=== PATIENT | female | born 1965 | race Caucasian/White ===

== ENCOUNTER → 2017-09-10 08:38 | Outpatient (CLI) | payer OTHER, SELFPAY ==
--- NOTE | 2017-09-10 | CT_ITS ---
CT head/brain wo con Ordering Physician: Jake Degroot MD Patient Age: 52 years: Female HISTORY: ITS.REASON: HEAD INJURY --TRAUMA WITH GAN Head injury 4 days ago with headache pain across top of TECHNIQUE: Routine axial CT of head with bone and brain windows performed. Note reduction techniques including CT software exposure control elevation COMPARISON :Previous MRI of brain from January 2017 FINDINGS 9 No acute intracranial findings. No hemorrhage. No mass no subdural collection no territorial infarct. The ventricles appear normal in size and appearance. Suprasellar cistern and ambient cistern clear unremarkable. Slight Generous superior cerebellar cistern noted beneath the the tentorium 2016 MRI. Merely reflects anatomical variation to although this could be very subtle atrophy at the superior cerebellum. Reviewing today's study along with previous MR brain here there is no compression upon the superior cerebellum thus thus does not appear to be underlying arachnoid nearly prominent cerebellar cyst cisterna Posterior fossa is unremarkable Minor diffuse cerebral atrophy. Skull intact. Visualized paranasal sinuses clear. Mastoid air cells, middle air and IACs unremarkable IMPRESSION: ======= No acute intracranial findings .. Early mild cerebral atrophy Slightly generous superior cerebellar cistern again noted Anatomic variation and unchanged vs MRI of January 2017
== END ==
PROVIDERS: PCP Internal Medicine Adolescent Medicine; Visit Provider Emergency Medicine
DX: S09.90XA Unspecified injury of head, initial encounter (principal); R51 Headache
CPT/HCPCS: 70450

== ENCOUNTER → 2017-09-21 08:36 | Outpatient (CLI) | payer OTHER, SELFPAY ==
[2017-09-21 12:10] LABS: Free T4 (Free Thyroxine) 1.01 ng/dl (0.76-1.46); T4 (Thyroxine) 8.6 ug/dl (4.7-13.3)
[2017-09-21 14:27] LABS: Free Thyroxine Index 2.8 ug/dL (5.93-13.13); Triiodothryronine (T3) Uptake 33 % (31-39)
[2017-09-23 06:28] LABS: Triiodothyronine (T3) Free 3.2 pg/mL (2.0-4.4)
== END ==
PROVIDERS: Visit Provider Internal Medicine Adolescent Medicine
DX: R94.6 Abnormal results of thyroid function studies (principal)
CPT/HCPCS: 36415; 84436; 84439; 84479; 84481

== ENCOUNTER → 2018-03-22 09:46 | Outpatient (CLI) | payer OTHER, SELFPAY ==
[2018-03-22 12:52] LABS: Blood Urea Nitrogen 11 mg/dL (7-18); Carbon Dioxide 28 mmol/L (21.0-32.0); Chloride 104 mmol/L (98-107); Creatinine,Serum 0.55 mg/dL (0.55-1.02); Estimated Glomerular Filt Rate 115 ml/min (>60); Free T4 (Free Thyroxine) 1.09 ng/dl (0.76-1.46); GFR (African American) 139 ML/MIN (>60); Glucose 104 mg/dL (74-106); Sodium 141 mmol/L (136-145); Thyroid Stimulating Hormone 1.22 uIU/ml (0.358-3.740)
== END ==
PROVIDERS: Physician Assistant; PCP Internal Medicine Adolescent Medicine; Visit Provider Internal Medicine
DX: I48.0 Paroxysmal atrial fibrillation (principal); E03.9 Hypothyroidism, unspecified; E78.5 Hyperlipidemia, unspecified; I10 Essential (primary) hypertension; I11.9 Hypertensive heart disease without heart failure; I51.9 Heart disease, unspecified; I89.0 Lymphedema, not elsewhere classified
CPT/HCPCS: 36415; 80048; 84439; 84443

== ENCOUNTER → 2018-08-20 08:37 | Outpatient (CLI) | payer OTHER, SELFPAY | PROVIDERS: PCP Internal Medicine Adolescent Medicine; Visit Provider Internal Medicine Adolescent Medicine | DX: R25.1 Tremor, unspecified (principal) | CPT/HCPCS: 93005; 95816 ==

== ENCOUNTER → 2018-08-31 00:27 | Outpatient (CLI) | payer OTHER, SELFPAY | PROVIDERS: PCP Internal Medicine Adolescent Medicine; Visit Provider Internal Medicine Cardiovascular Disease | DX: I48.91 Unspecified atrial fibrillation (principal) | CPT/HCPCS: 93005 ==

== ENCOUNTER → 2018-09-12 09:26 | Outpatient (CLI) | payer OTHER, SELFPAY ==
--- NOTE | 2018-09-12 09:29 | MR_ITS ---
MR head/brain wo con HISTORY: Seizures, tremors ITS.REASON: TREMORS OF NERVOUS SYSTEM, PAROXYSMAL ATRIAL FIBRILLATION ORDERING PHYSICIAN: Jorge Solorzano MD PATIENT AGE: 53 years Comparison: 01/12/2017 TECHNIQUE: Standard multiplanar multiecho sequences are performed without contrast. FINDINGS: No midline shift, mass effect, intracranial hemorrhage, or hydrocephalus. No evidence of acute infarction. The cerebellopontine angles, cerebellum, and brainstem are unremarkable. There are few scattered periventricular and subcortical T2 white matter hyperintensities nonspecific. There is a small area of increased subcortical FLAIR signal in the right parietal area on image #19 not duplicated on the coronal images and may be due to partial volume averaging artifact in the cortical medullary junction. Consider follow-up exam with contrast to exclude a small subcortical lesion. This measures approximately 4 mm. The pituitary and craniocervical junction have an unremarkable appearance. No mastoid effusion or sinus air-fluid level. There is prominence of the superior cerebellar cistern once again noted unchanged consistent with a normal variant. IMPRESSION: 1. No definite acute intracranial findings. There are few scattered periventricular and subcortical T2 white matter hyperintensities which are mostly unchanged. 2. There is a 4 mm subcortical area of increased FLAIR signal in the right parietal lobe possibly due to artifact from the cortical medullary junction. This however was not readily apparent on the previous exam. This could also be due to small gliotic focus. Consider follow-up exam with contrast to exclude the possibility of a small subcortical lesion
== END ==
PROVIDERS: PCP Internal Medicine Adolescent Medicine; Referring Provider Internal Medicine Adolescent Medicine; Visit Provider Internal Medicine Adolescent Medicine
DX: R25.1 Tremor, unspecified (principal); I48.0 Paroxysmal atrial fibrillation
CPT/HCPCS: 70551

== ENCOUNTER → 2018-10-15 09:06 | Outpatient (CLI) | payer OTHER, SELFPAY ==
[2018-10-15 11:47] LABS: Alanine Aminotransferase 33 U/L (12-78); Albumin Level 3.9 gm/dL (3.4-5.0); Albumin/Globulin Ratio 1.3 (1.1-1.8); Alkaline Phosphatase 116 U/L (46-116); Anion Gap 13.9 mEq/L (5-15); Aspartate Amino Transferase 20 U/L (15-37); Bilirubin,Total 0.9 mg/dL (0.2-1.0); Blood Urea Nitrogen 12 mg/dL (7-18); Carbon Dioxide 30 mmol/L (21.0-32.0); Chloride 103 mmol/L (98-107); Creatinine,Serum 0.69 mg/dL (0.55-1.02); Estimated Glomerular Filt Rate 88 ml/min (>60); GFR (African American) 107 ML/MIN (>60); Globulin 3.1 gm/dl (1.3-3.2); Glucose 113 mg/dL (74-106); Potassium 3.9 mmoL/L (3.5-5.1); Sodium 143 mmol/L (136-145)
[2018-10-15 15:26] LABS: Hemoglobin A1C 6.2 % (0.0-7.0)
== END ==
PROVIDERS: PCP Internal Medicine Adolescent Medicine; Visit Provider Internal Medicine Adolescent Medicine
DX: R73.9 Hyperglycemia, unspecified (principal)
CPT/HCPCS: 36415; 80053; 83036

== ENCOUNTER → 2018-12-10 01:54 | Outpatient (CLI) | payer OTHER, SELFPAY ==
[2018-12-10 02:09] VITALS: BMI 51.7
== END ==
PROVIDERS: PCP Internal Medicine Adolescent Medicine; Visit Provider Emergency Medicine
DX: M54.2 Cervicalgia (principal)
CPT/HCPCS: 96372

== ENCOUNTER → 2019-05-13 07:28 | Outpatient (CLI) | payer OTHER, SELFPAY ==
[2019-05-13 08:01] LABS: Alanine Aminotransferase 25 U/L (12-78); Albumin Level 3.8 gm/dL (3.4-5.0); Alkaline Phosphatase 112 U/L (46-116); Anion Gap 12.8 mEq/L (5-15); Aspartate Amino Transferase 15 U/L (15-37); Bilirubin,Total 0.6 mg/dL (0.2-1.0); Blood Urea Nitrogen 14 mg/dL (7-18); Calcium 9.1 mg/dL (8.5-10.1); Carbon Dioxide 29 mmol/L (21.0-32.0); Chloride 104 mmol/L (98-107); Chol/HDL Ratio 3.2 (1-3.5); Cholesterol 166 mg/dL (140-200); Creatinine,Serum 0.68 mg/dL (0.55-1.02); Estimated Glomerular Filt Rate 90 ml/min (>60); GFR (African American) 108 ML/MIN (>60); Globulin 3.7 gm/dl (1.3-3.2); Glucose 99 mg/dL (74-106); HDL Cholesterol 52 mg/dL (29-89); LDL Cholesterol 98 mg/dL (0-130); Potassium 3.8 mmoL/L (3.5-5.1); Sodium 142 mmol/L (136-145); Thyroid Stimulating Hormone 1.79 uIU/ml (0.358-3.740); Total Protein,Serum 7.5 gm/dL (6.4-8.2); Triglycerides 82 mg/dL (30-200); VLDL Cholesterol 16 mg/dL (0-40)
[2019-05-13 09:10] LABS: Hemoglobin A1C 5.9 % (0.0-7.0)
== END ==
PROVIDERS: Visit Provider Internal Medicine Adolescent Medicine
DX: E78.2 Mixed hyperlipidemia (principal); E03.9 Hypothyroidism, unspecified; E11.69 Type 2 diabetes mellitus with other specified complication; Z79.84 Long term (current) use of oral hypoglycemic drugs
CPT/HCPCS: 36415; 80053; 80061; 83036; 84443

== ENCOUNTER → 2019-08-11 10:50 | Outpatient (CLI) | payer OTHER, SELFPAY ==
[2019-08-11 11:26] LABS: Basophils % 0.5 % (0.1-2.0); Eosinophils # 0.1 K/mm3 (0.0-0.4); Eosinophils % 1.6 % (0.1-12.0); Hematocrit 40.4 % (37.0-47.0); Lymphocytes # 1.6 K/mm3 (0.7-4.5); Lymphocytes % 27.7 % (10-50); Mean Corpuscular HGB Conc 32.1 g/dL (31.8-35.4); Mean Corpuscular Hemoglobin 27.2 pg (27.0-31.2); Mean Corpuscular Volume 84.8 fl (81-99); Mean Platelet Volume 7.4 fl (7.4-10.4); Monocytes # 0.2 K/mm3 (0.1-1.0); Monocytes % 3.9 % (1.7-9.3); Neutrophils # 3.9 K/mm3 (1.8-7.8); Neutrophils % 66.4 % (37.0-80.0); Platelet Count 241 K/mm3 (142-424); Red Blood Count 4.76 M/mm3 (4.20-5.40); Red Cell Distribution Width 14.9 % (11.5-17.5); White Blood Count 5.9 K/mm3 (4.8-10.8)
[2019-08-11 12:35] LABS: Chloride 101 mmol/L (98-107); Potassium 4.1 mmoL/L (3.5-5.1); Sodium 140 mmol/L (136-145)
[2019-08-11 12:37] LABS: Alanine Aminotransferase 28 U/L (12-78); Aspartate Amino Transferase 26 U/L (14-36); Blood Urea Nitrogen 12 mg/dl (7-17); Estimated Glomerular Filt Rate 87 ml/min (>60); GFR (African American) 105 ML/MIN (>60)
[2019-08-11 12:38] LABS: Albumin Level 4.4 g/dl (3.5-5.0); Albumin/Globulin Ratio 1.6 (1.1-1.8); Alkaline Phosphatase 102 U/L (38-126); Anion Gap 11.1 mEq/L (5-15); Bilirubin,Total 0.7 mg/dl (0.2-1.3); Calcium 9.8 mg/dl (8.4-10.2); Carbon Dioxide 32 mmol/L (22.0-30.0); Globulin 2.8 g/dL (1.3-3.2); Glucose 98 mg/dl (74-100); Total Protein,Serum 7.2 g/dl (6.3-8.2)
[2019-08-11 12:48] LABS: Erythrocyte Sedimentation Rate 24 mm/hr (0-30)
== END ==
PROVIDERS: Visit Provider Internal Medicine Adolescent Medicine
DX: R51 Headache (principal); H53.461 Homonymous bilateral field defects, right side
CPT/HCPCS: 36415; 80053; 85025; 85651

== ENCOUNTER → 2019-08-13 08:00 | Outpatient (CLI) | payer OTHER, SELFPAY ==
--- NOTE | 2019-08-13 | CA_ITS ---
APPROVED REPORT System Integration Engineer: CT Laterality: Bilateral Indications: Amaurosis Fugax Risk Factors AFIB Doppler Spectral Velocity Analysis ECA (R) 149.70/9.60 cm/s ECA (L) 136.90/12.80 cm/s dICA (R) 115.50/28.90 cm/s dICA (L) 110.50/29.00 cm/s Nikolay (R) 126.20/28.90 cm/s Nikolay (L) 132.10/29.60 cm/s pICA (R) 123.00/27.80 cm/s pICA (L) 123.00/21.60 cm/s dCCA (R) 97.40/12.80 cm/s dCCA (L) 113.30/22.50 cm/s pCCA (R) 146.10/20.50 cm/s pCCA (L) 164.70/20.30 cm/s Vert (R) 38.50/11.50 cm/s Vert (L) 46.20/11.50 cm/s ICA/CCA 1.20 ICA/CCA 1.30 Findings Duplex evaluation demonstrates stenosis of the right proximal internal carotid artery in the range of 20-49% with PSV <140 cm/sec, EDV <100 cm/sec, and IC/CC Ratio <4, lower end of scale. Duplex evaluation demonstrates stenosis of the left proximal internal carotid artery in the range of 20-49% with PSV <140 cm/sec, EDV <100 cm/sec, and IC/CC Ratio <4.0. lower end of scale. Duplex evaluation demonstrates antegrade flow of the bilateral Vertebral Arteries. Conclusion Duplex evaluation demonstrates stenosis of the right proximal internal carotid artery in the range of 20-49% with PSV <140 cm/sec, EDV <100 cm/sec, and IC/CC Ratio <4, lower end of scale. Duplex evaluation demonstrates stenosis of the left proximal internal carotid artery in the range of 20-49% with PSV <140 cm/sec, EDV <100 cm/sec, and IC/CC Ratio <4.0. lower end of scale. Duplex evaluation demonstrates antegrade flow of the bilateral Vertebral Arteries. Electronically signed by : Alan Olsen, 08/13/2019 11:19:19
--- NOTE | 2019-08-13 08:51 | MR_ITS ---
PROCEDURE: MR HEAD/BRAIN WO CON CLINICAL INDICATION: NEW ONSET HEADACHE, VISUAL LOSS RIGHT EYE TECHNIQUE: Routine multiplanar multisequence exam was performed. FINDINGS: There is no acute infarct. No intracranial hemorrhage, mass, mass effect, or extra-axial fluid collection is apparent. There are again noted scattered FLAIR/T2 hyperintensities in the bilateral cerebral white matter not significantly changed over the interval. The findings are likely due to microvascular disease. Idiopathic cause, association with migraine headaches, or demyelinating process would be other possibilities. Normal flow voids are seen in both internal carotid arteries and the basilar artery. The orbital structures have a normal appearance. Dedicated orbital MRI could further evaluate orbits if felt to be clinically indicated. A small focus of signal abnormality consistent with mucosal thickening or mucous retention cyst up to 8 millimeters in a posterior right ethmoid sinus is noted. IMPRESSION: No acute intracranial pathology. Stable appearing FLAIR/T2 hyperintensities bilateral cerebral white matter. Microvascular disease is favored. Other possibilities are described. Right ethmoid sinusitis Dictated by: Alan Olsen 08/13/2019 11:34 Electronically signed by Alan Olsen in [place] 08/13/2019 11:34
--- NOTE | 2019-08-13 08:51 | MR_ITS ---
PROCEDURE: MR ANGIO HEAD WO CON CLINICAL INDICATION: NEW ONSET HEADACHE, VISUAL LOSS RIGHT EYE COMPARISON: MRI of the head/brain 08/13/2019 TECHNIQUE: Routine 3D time of flight MR angiography centered over the [id number] vessels FINDINGS: There is a hypoplastic A1 segment of the right anterior cerebral artery. However note is made of decreased patency of the anterior cerebral artery focally at its origin and a stenosis there is not excluded. There is also relatively diminutive A2 segment of the right anterior cerebral artery without a focal lesion. This may be developmental or could be related to chronic decreased flow. There is origin of the right posterior cerebral artery as a normal developmental variant. There is a short segment of slight decreased luminal patency of the right middle cerebral artery proximal to its bifurcation point. A focal short segment of 30-40 percent luminal stenosis is suspected. There is no other focal occlusion, stenosis, aneurysm, or vascular malformation. IMPRESSION: Suspect a short segment of 30-40 percent luminal stenosis of the distal right middle cerebral artery proximal to its bifurcation point. Relatively diminutive right anterior cerebral artery. There is a questionable stenosis at the origin of the right anterior cerebral artery. 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 Digital subtraction angiography may be useful for further evaluation. Dictated by: Alan Olsen 08/13/2019 12:03 Electronically signed by Alan Olsen in [place] 08/13/2019 12:03
== END ==
PROVIDERS: PCP Internal Medicine Adolescent Medicine; Visit Provider Internal Medicine Adolescent Medicine
DX: R51 Headache (principal); H54.61 Unqualified visual loss, right eye, normal vision left eye
CPT/HCPCS: 70544; 70551; 93880

== ENCOUNTER → 2019-09-03 07:52 | Outpatient (CLI) | payer OTHER, SELFPAY ==
--- NOTE | 2019-09-03 07:55 | MM_ITS ---
PROCEDURE: MM DIG SCREENING MAMM BI W/CAD Digital Breast Tomosynthesis Included CLINICAL INDICATION: SCREENING There is a history of breast cancer patient's mother diagnosed at age 40. There has been a previous biopsy left breast for benign disease. COMPARISON: DMDXUWAR DIG MAMM-DX UNI RT ADD VIEW from 09/03/2013 DMDXUR DIG MAMM-DX UNI-RT from 03/11/2014 DMSB DIG MAMM-SCREEN BARBARA from 03/04/2015 TECHNIQUE: Standard CC and MLO images and 3D Tomosynthesis was obtained. R2 CAD reviewed. FINDINGS: Minimal scattered fibroglandular densities are seen on a background of fatty breast parenchyma. There is a stable small benign-appearing density low axilla left breast probably a small node. There is no suspicious lesion in either breast and no suspicious microcalcifications. IMPRESSION: Fibrofatty parenchyma with no suspicious lesions seen BI-RAD Category: 2 Benign Finding(s) FOLLOW-UP: 1YR 1 Year Follow-up (A letter has been sent to the patient regarding results of the study.) Dictated by: Dr. Josh Robison MD 09/04/2019 11:[address] Josh Robison MD in [place] 09/04/2019 11:26
== END ==
PROVIDERS: PCP Internal Medicine Adolescent Medicine; Visit Provider Internal Medicine Adolescent Medicine
DX: Z12.31 Encounter for screening mammogram for malignant neoplasm of breast (principal)
CPT/HCPCS: 77063; 77067

== ENCOUNTER → 2019-11-27 08:07 | Outpatient (CLI) | payer OTHER, SELFPAY ==
--- NOTE | 2019-11-27 08:08 | CA_ITS ---
APPROVED REPORT EXAM: Comprehensive 2D, Doppler, and color-flow Echocardiogram Gullet Slitter: Bina Levine RT(R) Ht: 5 ft 6 in Wt: 291lbs BSA: 2.35 BP: 113/83 mmHg Indications: HTN, hyperlipidemia, PAF, hx atrial flutter 2D Dimensions LVOT 1.93 cm (M/F) 1.5-2.5 M-Mode Dimensions RVDd 2.25 cm (0.9-2.6) LVDd 4.80 cm (3.5-5.7) LVDs 3.23 cm (3.5-5.7) IVSd 1.19 cm (0.6-1.1) PWd 1.15 cm (0.6-1.1) EF (Teich) 61.00% FS 32.70% EDV (Teich) 107.50 mL ESV (Teich) 41.90 mL LV Diastology E/A Ratio 1.31 Mitral Valve MV A Velocity 81.00 (40-130 cm/s) Left Ventricle Left atrium is qualitatively mildly enlarged, left ventricle is normal size, mild concentric left ventricular hypertrophy, visually estimated ejection fraction 55% with no regional wall motion abnormality, diastolic parameters are within normal range. Right Ventricle Right atrium and right ventricle are normal size and contractility. Aortic Valve Aortic valve is grossly normal, there is no aortic stenosis or aortic insufficiency. Mitral Valve Mitral valve is grossly normal, there is mild mitral regurgitation. Tricuspid Valve Tricuspid valve grossly normal, there is mild tricuspid rotation, tricuspid regurgitation jet velocity is inadequate for calculation of the right ventricular systolic pressure. Pulmonic Valve Pulmonic valve is poorly visualized. Great Vessels Aortic root is normal size. Pericardium No significant pericardial effusion noted. Conclusion 1. Mildly enlarged left atrium, normal left ventricular size, visually estimated ejection fraction 55% with no regional wall motion abnormality, diastolic parameters are within normal range. 2. Mild mitral and tricuspid regurgitation. 3. No significant pericardial effusion noted. Electronically signed by : Sixto Olmos, 11/27/2019 15:21:35
== END ==
PROVIDERS: PCP Internal Medicine Adolescent Medicine; Visit Provider Urology
DX: I25.10 Atherosclerotic heart disease of native coronary artery without angina pectoris (principal); I11.9 Hypertensive heart disease without heart failure; I48.0 Paroxysmal atrial fibrillation
CPT/HCPCS: 93306

== ENCOUNTER → 2020-10-13 09:11 | Outpatient (CLI) | payer OTHER, SELFPAY ==
--- NOTE | 2020-10-13 09:42 | XR_ITS ---
PROCEDURE: XR DEXA AXIAL SKELETON CLINICAL HISTORY: POST MENOPAUSAL COMPARISON: No exams were available for comparison FINDINGS: The right hip BMD is 0.948 with a T-score of 0.9. The left hip BMD is 0.999 with a T-score of 1.3. The lumbar spine BMD is 1.339 with a T-score of 2.7. IMPRESSION: This patient is considered normal according to the World Health Organization criteria. Fracture risk is low. Based on these results a follow-up exam is recommended in 2 year. The Dictated by: Acosta Bender MD 10/13/2020 13:12 Acosta Bender MD in [place] 10/13/2020 13:12
[2020-10-13 09:50] LABS: Basophils % 0.5 % (0.1-2.0); Eosinophils # 0.1 K/mm3 (0.0-0.4); Eosinophils % 2.7 % (0.1-12.0); Hemoglobin 12.8 g/dL (12.2-16.2); Lymphocytes # 1.6 K/mm3 (0.7-4.5); Lymphocytes % 30.5 % (10-50); Mean Corpuscular HGB Conc 33.6 g/dL (31.8-35.4); Mean Corpuscular Hemoglobin 27.6 pg (27.0-31.2); Mean Corpuscular Volume 82.1 fl (81-99); Mean Platelet Volume 7.4 fl (7.4-10.4); Monocytes # 0.3 K/mm3 (0.1-1.0); Monocytes % 5.3 % (1.7-9.3); Neutrophils # 3.2 K/mm3 (1.8-7.8); Neutrophils % 61.1 % (37.0-80.0); Platelet Count 220 K/mm3 (142-424); Red Blood Count 4.63 M/mm3 (4.20-5.40); Red Cell Distribution Width 15.1 % (11.5-17.5); White Blood Count 5.2 K/mm3 (4.8-10.8)
[2020-10-13 11:17] LABS: Alanine Aminotransferase 26 U/L (12-78); Albumin Level 4.3 g/dl (3.5-5.0); Albumin/Globulin Ratio 1.6 (1.1-1.8); Alkaline Phosphatase 99 U/L (38-126); Anion Gap 12.1 mEq/L (5-15); Aspartate Amino Transferase 27 U/L (14-36); Bilirubin,Total 0.8 mg/dl (0.2-1.3); Blood Urea Nitrogen 12 mg/dl (7-17); Calcium 9.1 mg/dl (8.4-10.2); Carbon Dioxide 27 mmol/L (22.0-30.0); Chloride 105 mmol/L (98-107); Chol/HDL Ratio 3.6 (1-3.5); Cholesterol 171 mg/dl (140-200); Estimated Glomerular Filt Rate 127 ml/min (>60); GFR (African American) 154 ML/MIN (>60); Globulin 2.7 g/dL (1.3-3.2); Glucose 116 mg/dl (74-100); HDL Cholesterol 47 mg/dl (40-60); Potassium 4.1 mmoL/L (3.5-5.1); Sodium 140 mmol/L (136-145); Triglycerides 105 mg/dl (30-150); VLDL Cholesterol 21 mg/dL (0-40)
[2020-10-13 11:38] LABS: Direct LDL Cholesterol 92.94 mg/dL (100-129)
[2020-10-13 11:55] LABS: Thyroid Stimulating Hormone 1.87 uIU/mL (0.465-4.68)
[2020-10-13 13:06] LABS: Hemoglobin A1C 5.7 % (4.0-6.0)
== END ==
PROVIDERS: PCP Internal Medicine Adolescent Medicine; Visit Provider Internal Medicine Adolescent Medicine
DX: I48.0 Paroxysmal atrial fibrillation (principal); E03.9 Hypothyroidism, unspecified; E11.69 Type 2 diabetes mellitus with other specified complication; Z13.820 Encounter for screening for osteoporosis; Z79.84 Long term (current) use of oral hypoglycemic drugs
CPT/HCPCS: 36415; 77080; 80053; 80061; 83036; 84443; 85025

== ENCOUNTER → 2021-05-13 08:06 | Outpatient (CLI) | payer OTHER, SELFPAY ==
--- NOTE | 2021-05-13 | CA_ITS ---
APPROVED REPORT Exam: Pharmacologic Technologist: Jing Bee, Ht: 5 ft 6 in Wt: 322 lbs BSA: 2.45 m2 HR: 72 bpm BP: 151/64 mmHg Medical History Medical History: HTN, Hyperlipidemia Medications: Amlodipine,,,,, Levothyroxine,,,,, Metformin,,,,, Trazadone,,,,, Atorvastatin,,,,, Acetaminophen,,,,, Magnesium,,,,, Apixaban,,,,, Furosemide,,,,, GlUCOsamine-CHONDROITIN,,,,, Allergies: BROMPENIRAMINE, DEXBROMPHENIRAMINE, PSEUDOEPHEDRINE, VANCOMYCIN Cardiac Risk Factors: HTN, Hyperlipidemia, FHX of CAD Stress Test Details Test: LEXISCAN HR Resting HR: 70 bpm Max Heart Rate (APMHR): 162 bpm Max HR Achieved: 85 bpm Target HR (85% APMHR): 138 bpm % of APMHR: 52 Recovery HR: 77 bpm BP Resting BP: 151/64 mmHg Max BP: 197/77 mmHg Recovery BP: 179.0/71.0 mmHg ECG Clinical Exercise duration: 04:04 min Highest Stage Achieved: Exercise capacity: 1.0 METs Stress ECG Conclusion PT HAD SOA WITH LEXISCAN. NO CHEST PAIN. <1.[address] SEGMENT CHANGES. Test Summary REST 23:37 . . 70 . 151/ 64 . . Stage 1 01:00 . . 84 . . . . Stage 2 01:00 . . 82 . . . . Stage 3 01:00 . . 82 . 197/ 77 . . Stage 4 01:00 . . 82 . 193/ 74 . . Stage 4 01:04 . . 82 . 193/ 74 . Stop exercise at 04:04 RECOVERY 01:00 . . 83 . . . . RECOVERY 02:00 . . 84 . 184/ 78 . . RECOVERY 03:00 . . 80 . 197/ 76 . . RECOVERY 04:00 . . 81 . 197/ 76 . . RECOVERY 05:00 . . 76 . 177/ 71 . . RECOVERY 06:00 . . 76 . 179/ 71 . . RECOVERY 07:00 . . 76 . 179/ 71 . . RECOVERY 07:44 . . 74 . 178/ 66 . . Electronically signed by : Sixto Olmos MD 05/13/2021 15:46:07
--- NOTE | 2021-05-13 08:06 | NM_ITS ---
APPROVED REPORT Exam: Nuclear Stress Test Indication: Chest pain, SOB, Palpitations, Fatigue, HTN, High cholesterol, Ablation Patient Location: Outpatient Stress Tech: Jing Bee [place] Tech:Cheryl MaCELSO RT (R)(N)(M) Ht: 5 ft 6 in Wt: 316 lbs Bra Size: B HR: 72 bpm BP: 151/64 mmHg BSA: 2.43 m2 BMI: 50.9 History: Chest pain, SOB, Palpitations, Fatigue, HTN, High cholesterol, Ablation Procedure: Patient received a 0.4 mg of intravenous Lexiscan, resting heart rate 72 bpm, resting blood pressure 151/64 mmHg, with Lexiscan maximum heart rate achived was 83 bpm which is Less than 85 % of the maximum predicted heart rate and blood pressure was 197/77 mmHg. With Lexiscan, patient denied any complaint of chest pain. Electrocardiogram Resting electrocardiogram showed sinus rhythm, with Lexiscan there is less than 1.[address] segment depression noted from the baseline EKG. The EKG portion of the Lexiscan is nondiagnostic. Cardiac Stress and Resting SPECT Images: Cardiac Stress and Resting SPECT images were obtained using technetium 99m Myoview 30.2 mCi stress and 9.98 mCi at rest. Gated SPECT for analysis of segmental wall motion and calculation of the ejection fraction also done. Prone images were also obtained. Cardiac stress and resting SPECT images show uniform myocardial activity without segmental perfusion abnormality, computer derived ejection fraction is 74% with no regional wall motion abnormality, right ventricle is normal size and contractility. Conclusion: 1. The EKG portion of the Lexiscan is nondiagnostic. 2. No scintigraphic evidence of reversible ischemia seen, computer derived ejection fraction is 74% with no regional wall motion abnormality, right ventricle is normal size and contractility. 3. Normal Lexiscan Myoview study. Electronically signed by : Sixto Olmos MD 05/13/2021 15:48:09
--- NOTE | 2021-05-13 08:30 | CA_ITS ---
APPROVED REPORT Sidewalk Inspector: NILTON Laterality: Bilateral Study Quality: Fair Indications: typical angina/dyspnea, reynaldo, HX-amaurosis fugax Doppler Spectral Velocity Analysis ECA (R) 179.40/14.10 cm/s ECA (L) 129.00/12.00 cm/s dICA (R) 116.40/29.40 cm/s dICA (L) 90.00/5.30 cm/s Nikolay (R) 149.30/36.40 cm/s Nikolay (L) 160.00/35.00 cm/s pICA (R) 88.20/15.30 cm/s pICA (L) 88.00/15.00 cm/s dCCA (R) 103.80/11.50 cm/s dCCA (L) 103.80/11.50 cm/s pCCA (R) 99.00/0.00 cm/s pCCA (L) 166.60/17.90 cm/s Vert (R) 52.90/15.30 cm/s Vert (L) 40.00/12.00 cm/s ICA/CCA 1.50 ICA/CCA 1.60 Findings Duplex evaluation demonstrates stenosis of the right proximal internal carotid artery in the range of 50-69% with PSV =140 cm/sec. Duplex evaluation demonstrates stenosis of the left proximal internal carotid artery in the range of 50-69% with PSV =140 cm/sec. Duplex evaluation demonstrates antegrade flow of the bilateral Vertebral Arteries. Conclusion Duplex evaluation demonstrates stenosis of the right proximal internal carotid artery in the range of 50-69% with PSV =140 cm/sec. Duplex evaluation demonstrates stenosis of the left proximal internal carotid artery in the range of 50-69% with PSV =140 cm/sec. Duplex evaluation demonstrates antegrade flow of the bilateral Vertebral Arteries. Electronically signed by : Acosta Bender MD 05/13/2021 14:45:21
== END ==
PROVIDERS: PCP Internal Medicine Adolescent Medicine; Visit Provider Urology
DX: R06.00 Dyspnea, unspecified (principal)
CPT/HCPCS: 78452; 93017; 93880; A9502; J2785

== ENCOUNTER → 2021-12-06 08:10 | Outpatient (CLI) | payer OTHER, SELFPAY ==
--- NOTE | 2021-12-06 08:15 | MM_ITS ---
PROCEDURE INFORMATION: Exam: MG Bilateral Screening 3D Mammography Exam date and time: 12/06/2021 8:09 AM Age: 56 years old Clinical indication: Screening examination; Family history of breast cancer in mother; Mother's age: Unknown TECHNIQUE: Imaging protocol: Bilateral Screening tomosynthesis and 2D mammography including computer-aided detection (CAD) when performed. COMPARISON: 1. MG MM DIG SCREENING MAMM BI W/CAD 09/03/2019 8:01 AM 2. MG DMSB DIG MAMM-SCREEN BARBARA 03/04/2015 8:16 AM FINDINGS: MAMMOGRAPHY: Breast composition: There are scattered areas of fibroglandular density. Mass: None. Architectural distortion: None. Calcifications: No suspicious calcifications. Asymmetric density: None. Skin thickening: None. Axillary adenopathy: None. IMPRESSION: No mammographic evidence of malignancy. Annual screening is recommended unless otherwise clinically indicated. ASSESSMENT: BI-RADS Category 1: Negative
== END ==
PROVIDERS: PCP Internal Medicine Adolescent Medicine; Visit Provider Internal Medicine Adolescent Medicine
DX: Z12.31 Encounter for screening mammogram for malignant neoplasm of breast (principal)
CPT/HCPCS: 77063; 77067

== ENCOUNTER → 2022-03-16 09:59 | Outpatient (CLI) | payer OTHER, SELFPAY ==
--- NOTE | 2022-03-16 10:08 | XR_ITS ---
FINAL REPORT CLINICAL HISTORY: ACUTE RT KNEE PAIN FINDINGS: RIGHT KNEE 3 views of the right knee were obtained. There is no acute fracture or dislocation. Visualized joint spaces are normally aligned. There are moderate degenerative changes. Soft tissues are unremarkable. IMPRESSION: Moderate degenerative change with no acute bony abnormality. Reviewed, Interpreted and Dictated by Montana Casiano III, MD Transcribed by Joana Suarez Authenticated and [facility]
== END ==
PROVIDERS: PCP Internal Medicine Adolescent Medicine; Visit Provider Nurse Practitioner Family
DX: M25.561 Pain in right knee (principal)
CPT/HCPCS: 73562

== ENCOUNTER 2022-03-30 10:00 | Outpatient (RCR) | payer OTHER, SELFPAY | END 2022-03-30 10:58 | disposition home or self-care (01) | LOC: PT 10:00 | PROVIDERS: PCP Internal Medicine Adolescent Medicine; Visit Provider Nurse Practitioner Family | DX: M25.561 Pain in right knee (principal) | CPT/HCPCS: 97110; 97163 ==

== ENCOUNTER → 2022-08-28 10:57 | Outpatient (CLI) | payer OTHER, SELFPAY ==
--- NOTE | 2022-08-28 11:05 | CT_ITS ---
FINAL REPORT CLINICAL HISTORY: Bilat FLANK PAIN, gross hematuria FINDINGS: Axial CT images of the abdomen and pelvis were obtained without intravenous contrast. Coronal reformatted images were also obtained.This study was performed with techniques to keep radiation doses as low as reasonably achievable (ALARA). Individualized dose reduction techniques using automated exposure control or adjustment of mA and/or kV according to the patient's size were employed. Abdomen: There is mild bibasilar atelectasis or scarring. There is a staghorn calculus involving the right kidney measuring 25 mm. There is no left renal stone. No hydronephrosis is seen. There is a gallstone in the gallbladder. The liver, spleen and pancreas have an unremarkable, unenhanced appearance. No inflammatory process is identified. There is an umbilical hernia containing fat only. Pelvis: The appendix is normal. There is no evidence of ureteral dilation or ureteral stone.No mass or abnormal fluid collection is identified. IMPRESSION: 25 mm staghorn calculus involving the right kidney. No mass or inflammatory process. Reviewed, Interpreted and Dictated by Montana Casiano III, MD Transcribed by Joana Suarez Authenticated and [facility]
== END ==
PROVIDERS: PCP Internal Medicine Adolescent Medicine; Visit Provider Internal Medicine Adolescent Medicine
DX: R10.9 Unspecified abdominal pain (principal); R31.0 Gross hematuria
CPT/HCPCS: 74176

== ENCOUNTER → 2022-08-29 12:14 | Outpatient (CLI) | payer OTHER, SELFPAY ==
[2022-08-29 12:18] LABS: Microscopic, Urine URINE MICROSCOPIC (MICROSCOPIC)
[2022-08-29 12:48] LABS: Appearance,Urine SL CLOUDY (Clear); Bilirubin,Urine Negative (Negative); Blood, Urine TRACE-L (Negative); Color,Urine YELLOW (Yellow); Glucose,Urine (UA) Negative (Negative); Ketones,Urine Negative (Negative); Leukocyte Esterase,Urine 2+ (Negative); Nitrate,Urine Negative (Negative); Protein,Urine Negative (Negative); Specific Gravity, Urine 1.025 (1.005-1.030); Urobilinogen,Urine 0.2 EU/dl (0.2)
[2022-08-29 12:52] LABS: Basophils % 0.5 % (0.1-2.0); Eosinophils # 0.1 K/mm3 (0.0-0.4); Eosinophils % 2.5 % (0.1-12.0); Hematocrit 42.7 % (37.0-47.0); Hemoglobin 13.6 g/dL (12.2-16.2); Lymphocytes # 1.7 K/mm3 (0.7-4.5); Lymphocytes % 33.6 % (10-50); Mean Corpuscular HGB Conc 31.9 g/dL (31.8-35.4); Mean Corpuscular Hemoglobin 26.6 pg (27.0-31.2); Mean Corpuscular Volume 83.3 fl (81-99); Mean Platelet Volume 7.5 fl (7.4-10.4); Monocytes # 0.3 K/mm3 (0.1-1.0); Monocytes % 5.5 % (1.7-9.3); Neutrophils % 57.9 % (37.0-80.0); Platelet Count 196 K/mm3 (142-424); Red Blood Count 5.12 M/mm3 (4.20-5.40); Red Cell Distribution Width 15.6 % (11.5-17.5); White Blood Count 5.1 K/mm3 (4.8-10.8)
[2022-08-29 13:02] LABS: RBC,Urine Occasional #/hpf (0-3); Squamous Epithelial Cell,Urine Occasional #/hpf (0-5)
[2022-08-29 13:03] LABS: Bacteria,Urine Trace /lpf
[2022-08-29 13:10] LABS: Alanine Aminotransferase 22 U/L (12-78); Albumin Level 4.2 g/dl (3.5-5.0); Albumin/Globulin Ratio 1.5 (1.1-1.8); Alkaline Phosphatase 100 U/L (38-126); Aspartate Amino Transferase 23 U/L (14-36); Bilirubin,Total 0.8 mg/dl (0.2-1.3); Blood Urea Nitrogen 11 mg/dl (7-17); Calcium 8.9 mg/dl (8.4-10.2); Carbon Dioxide 29 mmol/L (22.0-30.0); Chloride 103 mmol/L (98-107); Estimated Glomerular Filt Rate 102 ml/min (>60); GFR (African American) 124 ML/MIN (>60); Globulin 2.8 g/dL (1.3-3.2); Glucose 102 mg/dl (74-100); Sodium 141 mmol/L (136-145); Uric Acid 6.2 mg/dl (2.5-6.2)
[2022-08-29 13:39] LABS: Thyroid Stimulating Hormone 2.18 uIU/mL (0.465-4.68)
== END ==
PROVIDERS: PCP Internal Medicine Adolescent Medicine; Visit Provider Internal Medicine Adolescent Medicine
DX: E11.69 Type 2 diabetes mellitus with other specified complication (principal); E03.9 Hypothyroidism, unspecified; E78.2 Mixed hyperlipidemia; R31.0 Gross hematuria; Z79.84 Long term (current) use of oral hypoglycemic drugs; B96.4 Proteus (mirabilis) (morganii) as the cause of diseases classified elsewhere
CPT/HCPCS: 36415; 80053; 81001; 82043; 84443; 84550; 85025; 87086; 87088; 87186

== ENCOUNTER → 2022-11-30 16:41 | Outpatient (CLI) | payer OTHER, SELFPAY ==
[2022-11-30 18:24] LABS: Free Thyroxine Index 2.8 ug/dL (5.93-13.13); T4 (Thyroxine) 8.7 ug/dl (5.53-11.0); Triiodothryronine (T3) Uptake 32 % (23.5-40.5)
[2022-11-30 18:38] LABS: Thyroid Stimulating Hormone 1.79 uIU/mL (0.465-4.68)
== END ==
PROVIDERS: PCP Internal Medicine Adolescent Medicine; Visit Provider Internal Medicine Adolescent Medicine
DX: I48.0 Paroxysmal atrial fibrillation (principal)
CPT/HCPCS: 36415; 84436; 84443; 84479

== ENCOUNTER 2023-08-09 13:00 | Outpatient (RCR) | payer OTHER, SELFPAY ==
--- NOTE | 2023-04-24 09:43 | HMH.PTOPWND ---
Rehab Outpt Wound Evaluation Rehab OP Wound Evaluation Start: 04/24/23 09:27 Freq: Status: Active Protocol: Document 04/24/23 09:28 ELIZABETH (Rec: 04/24/23 09:41 PHORCHEYANNE [id number]) E-signed By Gonzalo Garcia, PT Subjective/History History History This is the initial PT eval for Brandy Ivan, 58 yowf who presents with B LE edema for many years, but worse now x ~ 3-4 mos. She is well known to this clinic and had success with treatment in the past. She has hx of a-fib, HTN , DM, nephroliths with recent excision, and CVI. Subjective Subjective Currently she reports no paon, 0/10, at worst pain is 2/10. No numbness or tingling noted. 1+ pitting edema overlying Moderate fibrotic edema and B LE with mild lipodermatosclerosis noted. Moderate erythema to B lower legs. 2/4 TTP to B LE gaiter area. New diagnosis of cancer in past 12 No months? Lymphedema Eval Classification of Lymphedema Secondary Lymphedema Yes Stemmer's sign Stemmer's Sign yes Stage of Lymphedema Lymphedema stages Stage II (Pitting edema, increased fibrosis w/ decreased pitting) Skin Changes Dry Skin Yes Skin Folds Yes Redness Yes Discoloration of Skin Yes [place] Yes Other Changes Yes: lipodermatosclerosis Pain Scale Pain Scale (0-10) 2 Affected Extremities Areas Affected by Lymphedema/Edema Right Lower Extremity,Left Lower Extremity Manual Lymphatic Drainage Treatment Area MLD Treatment Area Right Lower Extremity,Left Lower Extremity Wound Problems/Impairments Impairments Problems/Impairmments Palpation Tenderness,Impaired Endurance,Impaired Walking, Impaired Standing,Impaired Household Care,Impaired Recreational Activities, Increased Edema,Lymphedema Present,Subjective C/O Pain, Impaired Self Care/Self Management Prognosis Rehab Potential Good Clinical Impression Consistent with Diagnosis Yes Short Term Goals Number of Weeks 2 Decreased Palpation Tenderness Yes: 1/4 B LE Decrease Edema Yes: no pitting edema Decrease Subjective C/O Pain Yes: 1/10 at worst Patient to Understand Lymphedema Yes Treatment and Exercises Decrease Girth Measurments by (cm) Yes: B LE total by 5 cm ea [facility] Goals Number of Weeks 4 Decreased Palpation Tenderness Yes: 0/4 to B LE Improve Ability For Household Care Yes Decrease Lymphedema Yes: Mild fibrotic edema Decrease Subjective C/O Pain Yes: 0/10 B LE Patient to be Ind w/ HEP Yes Patient to be Ind w/ [place] Yes Compression Garments Patient to Adhere Lymphedema Precautions Yes Decrease Girth Measurments by (cm) Yes: B LE total by 20 cm ea Outpatient Therapy Plan of Care Treatment Plan May Include Therapeutic Exercise Including Home Yes Exercise Program Manual Therapy Techniques Yes Neuromuscular Re-education Yes Therapeutic Activities to Return to Yes Previous Functional/Work Level ADL/Self Care Education Yes Orthotics/Bracing/Splinting Yes Vasopneumatic Compression Pump Yes Manual Lymphatic Drainage Yes Eval/Re-Eval Yes Frequency Times per week 2 Duration Number of Weeks 4 Addendums This patient is a candidate for social No or vocational rehab? Patient/Guardian verbally acknowledges Yes understanding of treatment program and consents to further treatment? Patient/Guardian verbally acknowledges Yes understanding of diagnosis, prognosis and goals for treatment? Eval Complexity PT Charges 05130 - High Complexity PHYSICIAN CERTIFICATION: I certify the specified therapy services for Brandy Ivan are required, authorized, and reviewed every 30 days.
--- NOTE | 2023-05-22 10:35 | HMH.RHREAS ---
Rehab Reassessment Rehab OP Re-assessment Start: 04/24/23 09:27 Freq: Status: Active Protocol: Document 05/22/23 10:32 ELIZABETH (Rec: 05/22/23 10:34 ELIZABETH [id number]) E-signed By Gonzalo Garcia PT Rehab Re-assessment Subjective Subjective Pt reports much less pain and heaviness n B LE overall. Objective Objective Notes B LE edema: No pitting Moderate fibrotic edema remains TTP: B LE gaiter area 05/17 this date. Assessment Progress Assessment Progressing as Expected Assessment Notes Pt is tolerating compression wear without increased pain and with improvement in symptoms. Continues to have difficulty with ADLs due to edmea. She continues to need skilled intervention to return to prior level of function. Patient goals met ST,2,3,[address] LT,2,3,4,5,6,7,8 Plan Plan Continue per initial POC. Frequency of Therapy 2 x/wk Duration of therapy 4 wks Time and Billing Re-Eval Time 12 Re-Eval Billing Units 1 PHYSICIAN CERTIFICATION: I certify the specified therapy services for Brandy Ivan are required, authorized, and reviewed every 30 days.
--- NOTE | 2023-06-18 11:06 | HMH.RHREAS ---
Rehab Reassessment Rehab OP Re-assessment Start: 04/24/23 09:27 Freq: Status: Active Protocol: Document 06/18/23 11:02 ELIZABETH (Rec: 06/18/23 11:05 PHOREE [id number]) E-signed By Gonzalo Garcia PT Rehab Re-assessment Subjective Subjective Less pain and tenderness noted . PT reports feeling better with general mobility with less B LE heaviness, Objective Objective Notes Circumferential Measurements: R LE total is 380.8 cm which is -12.1 cm since IE. L LE total is 379.8 cm which is -17.1 cm since IE. B LE edema: 1+ pitting edema from mid-calf distally B. Less fibrotic edema remains. TTP: B LE gaiter area 05/17 this date. Assessment Progress Assessment Progressing as Expected Assessment Notes Pt is tolerating compression wear without increased pain and with improvement in symptoms. Continues to have difficulty with ADLs due to edmea. She continues to need skilled intervention to return to prior level of function. Patient goals met ST,2,3,4,5 Goals Not Met LT,2,3,4,5,6,7,8 Plan Plan Continue per initial POC. Frequency of Therapy 2 x/wk Duration of therapy 4 wks Time and Billing Re-Eval Time 13 Re-Eval Billing Units 1 PHYSICIAN CERTIFICATION: I certify the specified therapy services for Brandy Ivan are required, authorized, and reviewed every 30 days.
--- NOTE | 2023-07-19 14:26 | HMH.RHREAS ---
Rehab Reassessment Rehab OP Re-assessment Start: 04/24/23 09:27 Freq: Status: Active Protocol: Document 07/19/23 14:15 ELIZABETH (Rec: 07/19/23 14:25 ELIZABETH [id number]) E-signed By Gonzalo Garcia, PT Rehab Re-assessment Subjective Subjective Pt reports she is able to fit into her new jeans now that some of her edema has decreased. No new c/o pain at this time. SHe also reports she didn't wear her compression for 2 days and all of her L LE swelling has returned. Objective Objective Notes Circumferential Measurements: L LE total is 396.6 cm which is -0.3 cm since IE. B LE edema: 1+ pitting edema from mid-calf distally B. Less fibrotic edema remains. TTP: B LE gaiter area / this date. Assessment Progress Assessment Slower Than Expected Assessment Notes Pt has shown significant return of edema throughout the left LE since her last reassessment. Without almost constant use of compression stockings, her edema returns to initial evaluation levels. She continues to need skilled intervention to return to prior level of function and reduce edema in B LE. Patient goals met ST,2,3,4,5 Goals Not Met LT,2,3,4,5,6,7,8 Plan Plan Continue per initial POC. Frequency of Therapy 2 x/wk Duration of therapy 4 wks Time and Billing Re-Eval Time 12 Re-Eval Billing Units 1 PHYSICIAN CERTIFICATION: I certify the specified therapy services for Brandy Ivan are required, authorized, and reviewed every 30 days.
== END 2023-08-09 14:10 | disposition home or self-care (01) ==
LOC: PT 13:00
PROVIDERS: PCP Internal Medicine Adolescent Medicine; Visit Provider Internal Medicine Adolescent Medicine
DX: R60.0 Localized edema (principal)
CPT/HCPCS: 97140; 97163; 97164

== ENCOUNTER 2024-04-18 10:21 | Outpatient (CLI) | payer OTHER, SELFPAY ==
--- NOTE | 2024-04-18 10:25 | MM_ITS ---
PROCEDURE INFORMATION: Exam: MG Bilateral Screening 3D Mammography Exam date and time: 04/18/2024 11:14 AM Age: 59 years old Clinical indication: Screening examination. Her mother had breast cancer at age 40. TECHNIQUE: Imaging protocol: Bilateral Screening tomosynthesis and 2D mammography including computer-aided detection (CAD) when performed. COMPARISON: 1. MG MM DIG SCREENING MAMM BI W/CAD 12/06/2021 8:09 AM 2. MG MM DIG SCREENING MAMM BI W/CAD 09/03/2019 8:01 AM 3. MG DMSB DIG MAMM-SCREEN BARBARA 03/04/2015 8:16 AM 4. MG DMDXUR DIG MAMM-DX UNI-RT 03/11/2014 8:57 AM FINDINGS: MAMMOGRAPHY: Breast composition: There are scattered areas of fibroglandular density. Mass: None. Architectural distortion: None. Calcifications: No suspicious calcifications. Asymmetric density: No developing asymmetry. Skin thickening: None. Axillary adenopathy: None. IMPRESSION: No mammographic evidence of malignancy. Annual screening is recommended unless otherwise clinically indicated. ASSESSMENT: BI-RADS Category 1: Negative.
== END 2024-04-18 23:59 | disposition home or self-care (01) ==
LOC: RAD 10:22
PROVIDERS: PCP Internal Medicine Adolescent Medicine; Visit Provider Internal Medicine Adolescent Medicine
DX: Z12.31 Encounter for screening mammogram for malignant neoplasm of breast (principal); Z80.3 Family history of malignant neoplasm of breast
CPT/HCPCS: 77063; 77067

== ENCOUNTER 2024-05-14 10:46 | Emergency (ER) | payer OTHER, SELFPAY ==
[2024-05-14 11:48] VITALS: BP 193/64; PULSE 75; RESP 18; TEMP 37.1; O2SAT 98; BMI 49.9
--- NOTE | 2024-05-14 11:58 | EXP.UTC ---
Discharge Plan Disposition Patient Disposition: Home, Self-Care Condition: Good Prescriptions Prescriptions: New sulfamethoxazole-trimethoprim [Bactrim DS] 800-160 mg Tablet 1 tab PO BID 10 Days Qty: 20 0RF cephalexin 500 mg capsule 500 mg PO QID 10 Days Qty: 40 0RF methylprednisolone 4 mg Tablets,Dose Pack 4 mg PO DIRECTED 6 Days Qty: 21 0RF Rx Instructions: Take 1 pack as directed for 6 days No Action magnesium oxide 500 mg tablet 500 mg PO DAILY glucosamine-chondroitin [Osteo Bi-Flex] 250-200 mg tablet 1 tab PO QDAY acetaminophen [Tylenol Extra Strength] 500 mg tablet 1,000 mg PO Q6H PRN ICaps AREDS [id number] capsule 1 cap PO BID levothyroxine [Synthroid] 50 mcg tablet 50 mcg PO DAILY metformin 500 mg tablet 500 mg PO DAILY trazodone 50 mg tablet 50 mg PO DIRECTED amlodipine [Norvasc] 5 mg tablet 5 mg PO DAILY Qty: 30 5RF atorvastatin 40 mg tablet 40 mg PO QDAY Qty: 30 5RF furosemide [Lasix] 40 mg tablet 40 mg PO QDAY Qty: 30 5RF Xarelto 20 mg tablet 20 mg PO DAILY Qty: 90 3RF Rx Instructions: must administer with evening meal Ozempic 2 mg/dose (8 mg/3 mL) pen injector 2 mg SQ DIRECTED Patient Comments: INJECT 2MG SUBCUTANEOUSLY ONCE WEEKLY Referrals Follow up/Referrals: Jorge Solorzano MD [Primary Care Provider] - See instructions Activity Restrictions/Add. Instructions Additional Instructions/Restrictions: Take tylenol for pain or fever. Take the medications as directed. Follow up with your regular doctor. GO TO THE ER FOR ANY WORSENING SYMPTOMS Clinical Impressions Clinical Impression: Sinusitis, Cellulitis of left leg Instructions Patient Instructions: Cellulitis, DI for Sinusitis, Ceftriaxone Injection Print Language Print Language: Nepali Discharge ED [place] [facility] [place] General Stated complaint: head congestion, cellulitis left leg Mode of Arrival: Ambulatory Source of Information: Patient Time Seen by Provider: 05/14/24 11:58 Description of Symptoms (Recalled from Triage Doc. by RN): REDDNES AND SWELLING OF LEFT LOWER LEG WITH 2 OPEN SPOTS ON THE SIDE, ALSO IS HAVING A COUGH AND DRAINAGE HEENT Symptoms (Recalled from RN notes): No Resp Symptoms (Recalled from RN notes): Yes Skin Symptoms (Recalled from RN notes): Yes MS Symptoms (Recalled from RN notes): Yes Functional Status (Recalled from RN notes): WNL Related Data Home Medications ?Medication ?Instructions ?Recorded ?Confirmed acetaminophen 500 mg tablet 1,000 mg PO Q6H PRN 06/04/17 05/10/21 (Tylenol Extra Strength) glucosamine-chondroitin 250 mg-200 1 tab PO QDAY 06/04/17 05/14/24 mg tablet (Osteo Bi-Flex) levothyroxine 50 mcg tablet 50 mcg PO DAILY 11/21/17 05/14/24 (Synthroid) metformin 500 mg tablet 500 mg PO DAILY 12/10/18 05/14/24 magnesium oxide 500 mg PO DAILY 05/11/20 05/14/24 trazodone 50 mg tablet 50 mg PO DIRECTED 11/09/20 05/14/24 vitamins A,C,B-abro-twwoqb 4,296 1 cap PO BID 11/09/20 05/14/24 mcg-226 mg-90 mg capsule (ICaps AREDS) semaglutide 2 mg/dose (8 mg/3 mL) 2 mg SQ DIRECTED 05/14/24 05/14/24 subcutaneous pen injector (Ozempic) Previous Rx's ?Medication ?Instructions ?Recorded amlodipine 5 mg tablet (Norvasc) 5 mg PO DAILY #30 tabs 06/03/18 atorvastatin 40 mg tablet 40 mg PO QDAY #30 tabs 06/03/18 furosemide 40 mg tablet (Lasix) 40 mg PO QDAY #30 tabs 06/03/18 rivaroxaban 20 mg tablet (Xarelto) 20 mg PO DAILY #90 tabs 08/27/23 cephalexin 500 mg capsule 500 mg PO QID 10 days #40 caps 05/14/24 methylprednisolone 4 mg tablets in 4 mg PO DIRECTED 6 days #21 tabs 05/14/24 a dose pack sulfamethoxazole 800 1 tab PO BID 10 days #20 tabs 05/14/24 mg-trimethoprim 160 mg tablet (Bactrim DS) Allergies Allergy/AdvReac Type Severity Reaction Status Date / Time brompheniramine (From Allergy Unknown I-RASH Verified 05/10/21 09:05 Drixoral) dexbrompheniramine (From Allergy Unknown I-RASH Verified 05/10/21 09:05 Drixoral) pseudoephedrine (From Allergy Unknown I-RASH Verified 05/10/21 09:05 Drixoral) vancomycin Allergy Unknown I-RASH Verified 05/10/21 09:05 Worker's Comp Is this a Worker's Comp case?: No [facility] Disclaimer: The information contained in this section may have been updated after the patient was seen, as this information can be updated by other users. Medical History (Updated 05/14/24 @ 12:43 by Mati Harley APRN) Current use of superintendent terminal anticoagulation Social History Smoking Status: Never smoker alcohol intake: never counseling provided: none substance use type: denies use current occupational status: employed Travel in the last 8 weeks: Inside the [place] Have you lived/traveled outside [place] in past 30 days?: No Contact w/someone who lives/traveled outside [place] past 30 days?: No Exposure to someone with infectious disease in past 14 days?: No Do you have a fever (greater than 100.4 F or 38 C)?: No Have you tested positive for COVID-19: No Exposed to someone with COVID-19 in past 14 days?: No Do you have a sore throat?: No Do you have a cough?: No Do you have any weakness?: No Do you have any diarrhea?: No Are you experiencing any unusual bleeding?: No Do you have any muscle aches/pain?: No Do you have any abdominal pain?: No Are you experiencing loss of taste or smell?: No ROS Obtained: Yes All systems reviewed & no additional complaints except as documented Constitutional Constitutional: Reports poor appetite Eyes Eyes: Reports system reviewed and no additional complaints, except as documented ENT Ears, Nose, Mouth, and Throat: Reports as per HPI Cardiovascular Cardiovascular: Reports system reviewed and no additional complaints, except as documented and Denies chest pain Respiratory Respiratory: Denies shortness of breath, Denies chest congestion, Reports cough, Denies stridor and Denies wheezing Gastrointestinal Gastrointestingal: Reports system reviewed and no additional complaints, except as documented; Denies abdominal pain, diarrhea or vomiting Musculoskeletal Musculoskeletal: Reports system reviewed and no additional complaints, except as documented and Denies arthralgias Integumentary/Breasts Skin/Breast: Reports as per HPI and Reports redness Neurologic Neurologic: Denies paresthesias Allergic/Immunologic Allergic/Immunologic: Denies wheezing Physical Exam General General appearance: alert and in no apparent distress Head Head exam: atraumatic, normocephalic and normal inspection Eye Eye exam: Present normal appearance, PERRL and EOMI ENT ENT exam: Present normal exam, normal oropharynx, mucous membranes moist, TM's normal bilaterally and normal external ear exam Neck Neck exam: Present normal inspection, full ROM and trachea midline; Absent meningismus or lymphadenopathy Chest Chest inspection: Present normal inspection and symmetric chest wall rise; Absent tenderness Respiratory Respiratory exam: Present normal lung sounds bilaterally; Absent respiratory distress Cardiovascular Cardiovascular exam: Present regular rate and normal rhythm; Absent JVD Abdominal Exam Abdominal exam: Present soft and normal bowel sounds; Absent distention, tenderness or guarding Extremities Exam Extremities exam: Present normal inspection, full ROM and normal capillary refill; Absent calf tenderness Back Exam Back exam: Present normal inspection; Absent tenderness Neurological Exam Neurological exam: Present alert and oriented X3 Psychiatric Psychiatric exam: Present normal affect and normal mood Skin Skin exam: Present erythema Lymphatic Lymphatic Findings: no adenopathy Medical Decision Making Medical Records Medical records reviewed: No I reviewed the patient's medical records. Screening: Per USPSTF and CDC recommendations, given the prevalence of disease in our region, it is our hospital?s policy to screen for HIV and viral Hepatitis for all patients aged 18 and over and those with ongoing risk factors. Ubaldo Inquiry Pt receiving controlled substance: No Vital Signs: 05/14/24 11:48 Temperature 98.7 F Temperature Source Oral Pulse Rate [Left Brachial] 75 Respiratory Rate 18 Blood Pressure [Left Arm] 193/64 H Blood Pressure Mean [Left Arm] 107 02 Sat by Pulse Oximetry 98
[2024-05-14] MEDS: LIDOCAINE 1% 5ML PF VIAL IM (12:20)
[2024-05-14] MEDS: cefTRIAXone 1GM VIAL 1 GM IM (12:20)
[2024-05-14 12:52] VITALS: BP 193/64; PULSE 75; RESP 18; TEMP 37.1
== END 2024-05-14 12:52 | disposition home or self-care (01) ==
PROVIDERS: Emergency Provider Nurse Practitioner Family; PCP Internal Medicine Adolescent Medicine
DX: J01.90 Acute sinusitis, unspecified (principal); L03.116 Cellulitis of left lower limb; R63.8 Other symptoms and signs concerning food and fluid intake; R50.9 Fever, unspecified; R60.0 Localized edema
CPT/HCPCS: 99212; G0381; J0696

== ENCOUNTER 2024-07-17 11:22 | Outpatient (CLI) | payer OTHER, SELFPAY | END 2024-07-17 23:59 | disposition home or self-care (01) | LOC: RT 11:23 | PROVIDERS: PCP Internal Medicine Adolescent Medicine; Visit Provider Physician Assistant | DX: I48.0 Paroxysmal atrial fibrillation (principal); I25.10 Atherosclerotic heart disease of native coronary artery without angina pectoris | CPT/HCPCS: 93270 ==

== ENCOUNTER 2024-07-23 08:13 | Outpatient (CLI) | payer OTHER, SELFPAY ==
--- NOTE | 2024-07-23 08:16 | CA_ITS ---
FINAL REPORT TECHNIQUE: Color Doppler, duplex Doppler and sood scale sonography of the bilateral neck vasculature was performed. Velocities were measured in the carotid arteries. Stenosis evaluation based on velocity criteria. CLINICAL HISTORY: DENZEL,DIZZINESS,HTN COMPARISON: None FINDINGS: The peak systolic velocity of the right common carotid artery is 137 cm/sec and internal carotid artery 231 cm/sec. The diastolic velocity in the internal carotid artery is 26 cm/sec. The ICA/CCA ratio is 2.0. Visually, a small amount of plaque is seen. These findings are consistent with 50 to 69% stenosis. The external carotid artery is patent. The right vertebral artery is patent with antegrade flow. The peak systolic velocity of the left common carotid artery is 172 cm/sec and internal carotid artery 338 cm/sec. The diastolic velocity in the internal carotid artery is 78 cm/sec. The ICA/CCA ratio is 3.35. Visually, a small amount of plaque is seen. These findings are consistent with greater than 70% stenosis. The external carotid artery is patent. The left vertebral artery is patent with antegrade flow. IMPRESSION: On the right side, the findings are consistent with 50 to 69% stenosis. On the left side, there is greater than 70% stenosis. Bilateral patent vertebral arteries. CTA would be helpful to further evaluate. Reviewed, Interpreted and Dictated by Moe Gar MD Transcribed by Santa lAlen Authenticated and . [facility]
== END 2024-07-23 23:59 | disposition home or self-care (01) ==
LOC: RT 08:14
PROVIDERS: PCP Internal Medicine Adolescent Medicine; Visit Provider Physician Assistant
DX: I65.23 Occlusion and stenosis of bilateral carotid arteries (principal); R55 Syncope and collapse; I48.0 Paroxysmal atrial fibrillation; I25.10 Atherosclerotic heart disease of native coronary artery without angina pectoris
CPT/HCPCS: 93880

== ENCOUNTER 2024-08-14 08:45 | Outpatient (CLI) | payer OTHER, SELFPAY ==
--- NOTE | 2024-08-14 08:51 | CT_ITS ---
FINAL REPORT CLINICAL HISTORY: B/L CAROTID STENOSIS COMPARISON: Carotid duplex 07/23/2024 FINDINGS: CT NECK ANGIO, WITHOUT AND WITH CONTRAST TECHNIQUE: Thin section axial CT with contrast with multiplanar 3D MIP reconstruction. This study was performed with techniques to keep radiation doses as low as reasonably achievable, (ALARA). Individualized dose reduction techniques using automated exposure control or adjustment of mA and/or kV according to the patient's size were employed. NASCET criteria and technique was utilized during interpretation. FINDINGS: Aortic arch: Arch shows no significant narrowing. Great vessel origins are widely patent. Right carotid: Mild stenosis measuring 20% or less. Left carotid: No significant stenosis is seen of the cervical common or internal carotid artery. Vertebrals: The vertebral arteries are codominant. No significant stenosis is present. IMPRESSION: No evidence of cervical carotid stenosis. Reviewed, Interpreted and Dictated by Anette Burt MD Transcribed by Blank Small Authenticated and [facility]
[2024-08-14 09:23] LABS: Blood Urea Nitrogen 13 mg/dl (7-17); Estimated Glomerular Filt Rate 102 ml/min (>60); GFR (African American) 123 ML/MIN (>60)
[2024-08-14] MEDS: SODIUM CHLORIDE 0.9% 10ML SYR (RAD ONLY) 10 ML IV (10:19)
[2024-08-14] MEDS: 0.9 % SODIUM CHLORIDE 50 ML VIAL 40 ML IV (10:19)
[2024-08-14] MEDS: IOPAMIDOL-370 (76%);100ML BOTTLE 100 ML IV (10:20)
== END 2024-08-14 23:59 | disposition home or self-care (01) ==
LOC: RAD 08:46
PROVIDERS: PCP Internal Medicine Adolescent Medicine; Visit Provider Internal Medicine Adolescent Medicine
DX: I65.23 Occlusion and stenosis of bilateral carotid arteries (principal); I10 Essential (primary) hypertension; R42 Dizziness and giddiness
CPT/HCPCS: 36415; 70498; 82565; 84520; Q9967

== ENCOUNTER 2024-09-02 08:27 | Outpatient (CLI) | payer OTHER, SELFPAY ==
--- NOTE | 2024-09-02 08:30 | US_ITS ---
PROCEDURE: US TRANSVAGINAL CLINICAL INDICATION: CATTLE RANCHER bleeding COMPARISON: No exams were available for comparison FINDINGS: Transvaginal sonographic images of the pelvis were obtained. UTERUS: 6.9 cm x 3.2cm anteverted with a combined endometrial thickness of 15.7mm. LEFT OVARY: Not visualized RIGHT OVARY: Not visualized Both ovaries are not visualized due to patient discomfort. There is no fluid in the cul-de-sac. IMPRESSION: 1. Anteverted, small uterus. 2. The endometrium is markedly thickened measuring 15.7 mm. Would suggest endometrial sampling. 3. The ovaries could not be visualized secondary to patient discomfort. Transabdominal ultrasound was performed but the ovaries could not be seen. Dictated by: Yunior Lowe MD 09/02/2024 19:41 Yunior Lowe MD in OV 09/02/2024 19:41
== END 2024-09-02 23:59 | disposition home or self-care (01) ==
LOC: RAD 08:28
PROVIDERS: PCP Internal Medicine Adolescent Medicine; Visit Provider Obstetrics & Gynecology
DX: N95.0 Postmenopausal bleeding (principal)
CPT/HCPCS: 76830

== ENCOUNTER 2024-11-03 12:51 | Outpatient (CLI) | payer OTHER, SELFPAY ==
--- OUTSIDE RECORDS SUMMARY | 2024-10-29 09:15 | XMS_ITS | Encounter Summary ---
Author Organization Healthcare Address [address] [place] [address] Care Team Providers Care Night Nurse Name Role Phone Jorge Solorzano MD Primary Care Provider [phone] Alexandra Diehl MD Unavailable [phone] Kinjal Henley Unavailable [phone] Reason for Visit * Consultation (Routine) - Closed Specialty Diagnoses / Procedures Referred By Contmary lou stock Referred To Contact Gynecology / Obstetrics and Gynecology Diagnoses Complex endometrial hyperplasia Endometrial thickening on ultrasound Jorge Solorzano MD [address] [place] [address] Phone: tel: fax: Referral ID Status Reason Start Date Expiration Date V isits Requested Visits Authorized [id number] Closed Specialty Services Required 09/04/2024 03/06/2026 1 1 Encounter Details Date Type Department Care Team ([facility] Contact Info) Description 10/29/2024 9:15 AM EDT Office Visit Medical Office Building Obstetrics and Gynecology [address] [facility], [address] [place] [address] Yehuda Gaston MD [address] [facility] [address] [place] [address] PMB (postmenopausal bleeding) (Primary Dx) Social History Tobacco Use Types Packs/Day Years Used Date Smoking Tobacco: Never Passive Smoke Exposure: Never Smokeless Tobacco: Never Tobacco Cessation:Counseling Given: Not Answered Alcohol Use Standard Drinks/Week Comments Never 0 (1 standard drink = 0.6 oz pur e alcohol) PHQ-2 Answer Date Recorded Patient Health Questionnaire-2 Score 0 10/29/2024 PHQ-9 Answer Date Recorded Patient Health Questionnaire-9 Score 0 10/29/2024 PHQ-2A Answer Date Recorded Patient Health Questionnaire-2 Score 2 02/14/2023 Comments No Sex and Gender Information Value Date Recorded Sex Assigned at Female 11/08/2022 10:59 AM EDT Legal Sex Female 6:33 PM EDT Gender Identity Female 11/08/2022 10:59 AM EDT Sexual Orientation Not on file documented as of this encounter Last Filed Vital Signs Vital Sign Reading Time Taken Comments Blood Pressure 165/98 10/29/2024 8:48 AM EDT Pulse 98 10/29/2024 8:48 AM EDT Temperature 36.6 C (97.8 F) 10/29/2024 8:48 AM EDT Respiratory Rate 20 10/29/2024 8:48 AM EDT Oxygen Saturation 100% 10/29/2024 8:48 AM EDT Inhaled Oxygen Concentration - - Weight 137 kg (302 lb) 10/29/2024 8:48 AM EDT Height 167.6 cm (5' 6 ) 10/29/2024 8:48 AM EDT Body Mass Index 48.74 10/29/2024 8:48 AM EDT documented in this encounter Functional Status * Over the past 2 weeks, how often have you been bothered by any of the following problems? Question Answer Date of Assessment Author Little interest or pleasure in doing things Not at all 10/29/2024 8:52 AM EDT Roxanne Montoya Feeling down, depressed, or hopeless Not at all 10/29/2024 8:52 AM EDT Roxanne Montoya Patient Health Questionnaire-2 Score 0 10/29/2024 8:52 AM EDT Lorena Montoya * Question Answer Date of Assessment Author Trouble falling or staying asleep, or sleeping too much Not at all 10/29/2024 8:52 AM EDT Mitzi Mann Feeling tired or having little energy Not at all 10/29/2024 8:52 AM EDT Roxanne Montoya Poor appetite or overeating Not at all 10/29/2024 8: 52 AM Mitzi Obando Feeling bad about yourself - or that you are a failure or have let yourself or your family down Not at all 10/29/2024 8:52 AM Roxanne Obando Trouble concentrating on things, such as reading the newspaper or watching television Not at all 10/29/2024 8:52 AM Roxanne Obando Moving or speaking so slowly that other people could have noticed? Or the opposite - being so fidgety or restless that you have been moving around a lot more than usual. Not at all 10/29/2024 8:52 AM Roxanne Obando Thoughts that you would be better off or hurting yourself in some way Not at all 10/29/2024 8:52 AM Caity Obando Patient Health Questionnaire-9 Score 0 10/29/2024 8:52 AM Lorena Obando * If you checked off any problems on this questionnaire so far, Question Answer Date of Assessment Author How difficult have these problems made it for you to do your work, take care of things at home, or get along with other people? Not difficult at all 10/29/2024 8:52 AM Caity Obando documented as of this encounter Miscellaneous Notes * Progress Notes - Yehuda Gaston MD - 10/29/2024 9:15 AM EDT Gynecologic Surgery Initial Patient Encounter Date: 10/29/24 Identification: Ms. Brandy Ivan is a 59 y.o. Body mass index is 48.74 kg/m??. presenting with postmenopausal bleeding. History of Present Illness: Pt reports that she went into menopause in mid to early 50's. She denies any heavy bleeding since going into menopause. She notes that she has had episodes of spotting. She had a recent renal ultrasound that showed a thickened endometrium (13 mm) Gynecologic History: Last Menstrual Period: No LMP recorded. Patient is postmenopausal. Past Medical History: Past Medical History[1] Past Surgical History: Surgical History[2] Medications: Current Outpatient Medications Medication Instructions acetaminophen (TYLENOL) 1,000 mg, Every 6 hours PRN amLODIPine (Norvasc) 5 MG tablet Daily atorvastatin (Lipitor) 40 MG tablet Daily coenzyme Q-10 300 mg, Nightly furosemide (Lasix) 40 MG tablet Daily PRN levothyroxine (Synthroid, Levoxyl) 50 MCG tablet Daily before breakfast MAGnesium-Oxide 400 (240 Mg) MG tablet 1 tablet, Daily wtoxflhucboq-oftwkcuv-aknvy acid-coenzyme q10 (Preservision AREDS 2) capsule 1 capsule, Nightly Ozempic (0.25 or 0.5 MG/DOSE) 2 mg, Weekly Turmeric (QC TUMERIC COMPLEX PO) 1,000 mg, Nightly Xarelto 20 MG tablet Daily Allergies: Allergies[3] Visit Vitals BP (!) 165/98 Pulse 98 Temp 36.6 ??C (97.8 ??F) Ht 1.676 m (5' 6 ) Wt 137 kg (302 lb) SpO2 100% BMI 48.74 kg/m?? Physical Examination: Constitutional: No acute distress, well appearing and well nourished. Head and Face: Normocephalic and atraumatic. Musculoskeletal: Upper and lower extremities are atraumatic in appearance without tenderness or deformity. No swelling or erythema. Full range of motion is noted to all joints. Normal gait and station. Skin: No apparent skin abnormalities present on gross examination. Neurologic: Normal coordination. Psychiatric: Normal judgement and insight. Oriented to person, place, time. Normal mood and affect. Assessment & Plan: 59 yo presenting with PMB. Assessment & Plan PMB (postmenopausal bleeding) #Postmenopausal Bleeding -Discussed pathophysiology of postmenopausal bleeding stemming from bleeding from either the uterus, cervix, vagina or vulvar but concerns that it may be an early sign of endometrial hyperplasia or cancer thus warrants diagnostic evaluation. -Discussed risk factors for endometrial hyperplasia and cancer including obesity, unopposed estrogen, polycystic ovarian syndrome, tamoxifen use, diabetes mellitus, atypical glandular cells on pap smear, family history of uterine and colorectal cancer concerning for possible Borden syndrome. -Discussed differential diagnosis of postmenopausal bleeding including endometrial hyperplasia/cancer versus endometrial atrophy versus vaginal atrophy versus bleeding from a urologic or gastrointestinal source. -Discussed work up of postmenopausal bleeding with a physical exam, pelvic imaging, endometrial sampling with either an endometrial biopsy or dilation and curettage and ensuring patient is up to datewith pap smear screening for cervical dysplasia. Since pt is a virgin, would recommend sampling be completed in the OR with hysteroscopy -Counseled about consultation options with gynecologic oncology if any endometrial hyperplasia or cancer is identified. -Plan for work up with [facility] today -Will call pt with results, and if thickened endometrium is confirmed, then place surgical order for hysteroscopy Time Spent: I personally spent a total of 15 minutes on this encounter. This time includes face to face with patient, counseling and discussion and/or coordination of care. Note by: Yehuda Gaston MD Minimally Invasive Gynecologic Surgery [1] Past Medical History: Diagnosis Date Abnormal ECG 2017 Adverse effect of anesthesia 2019 Not sure of date. After ablation, loss of voice. Went to ENT and then speech therapist to regain voice. 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 Fibrocystic breast 1983 Head injury Approximately 2018 Hypertension 2019 Kidney stone 2021 Lymphedema of both lower extremities Personal history of other diseases of the circulatory system History of atrial fibrillation Personal history of other diseases of the circulatory system History of hypertension Personal history of other endocrine, nutritional and metabolic disease History of diabetes mellitus Sleep apnea 2019 Syncope 1985 During lumpectomy of l breast Varicella 1967 Venous stasis [2] Past Surgical History: Procedure Laterality Date ABLATION OF DYSRHYTHMIC FOCUS 2019 RFA flutter/PVA BREAST BIOPSY 1985 BREAST LUMPECTOMY 1985 CARDIAC CATHETERIZATION 2019 CARDIOVERSION 2022 r/t Afib CEREBRAL ANGIOGRAM KIDNEY STONE SURGERY 2022 WISDOM TOOTH EXTRACTION [3] Allergies Allergen Reactions Vancomycin Other - please document in the comment field and Unknown - Patient states they do not know rxn details Red man syndrome Dexbrompheniramine Rash Pseudoephedrine Rash documented in this encounter Plan of Treatment Upcoming Encounters Date Type Department Care Team (Late st Contact Info) Description 02/11/2025 9:00 AM EDT Appointment [facility] [address] [place] [address] 02/11/2025 11:10 AM EDT [facility] [address], [address] [place] [id number] Kinjal Henley PA [address] [place] [address] documented as of this encounter Visit Diagnoses Diagnosis PMB (postmenopausal bleeding)- Primary Postmenopausal bleeding documented in this encounter Additional Health Concerns Assessment Noted Time PHQ-9 Depression Total Score: 0 10/30/19 25 8:52 AM EDT A fall risk assessment has been complete d for the patient 08/12/2024 11:42 AM EDT A Body Mass Index follow-up plan has been documented for the patient 10/29/2024 12:56 PM EDT documented as of this encounter Care Teams Night Nurse Relationship Specialty Start Date End Date Jorge Solorzano MD [address] [place] [address] PCP - General 09/24/20 Alexandra Diehl MD [address] [place] [address] Service Attending Neurology 01/12/21 Kinjal Henley PA [address] [place] [address] Physician Automatic Quilling Machine Operator Urology 08/12/24 documented as of this encounter
--- OUTSIDE RECORDS SUMMARY | 2024-10-29 09:29 | XMS_ITS | Encounter Summary ---
Author Organization Healthcare Address [address] [place] [address] Care Team Providers Care Inspector Penetrant Name Role Phone Jorge Solorzano MD Primary Care Provider [phone] Alexandra Diehl MD Unavailable [phone] Kinjal Henley Unavailable [phone] Encounter Details Date Type Department Care Team (Latest Contact Info) Description 10/29/2024 9:29 AM EDT - 10/29/2024 11:59 PM EDT Hospital Encounter Medical Office Building Obstetrics and Gynecology [address] [facility], [address] [place] [address] PMB (postmenopausal bleeding) Discharge Disposition: Home or Self Care Social History Tobacco Use Types Packs/Day Years Used Date Smoking Tobacco: Never Passive Smoke Exposure: Never Smokeless Tobacco: Never Alcohol Use Standard Drinks/Week Comments Never 0 [...] on file documented as of this encounter Functional Status * Over the past 2 weeks, how often have you been bothered by any of the following problems? Question Answer Date of Assessment Author Sandy interest or pleasure in doing things Not at all 10/29/2024 8:52 AM Roxanne Obando Feeling down, depressed, or hopeless Not at all 10/29/2024 8:52 AM Roxanne Obando Patient Health Questionnaire-2 Score 0 10/29/2024 8:52 AM Lorena Obando * Question Answer Date of Assessment Author Trouble falling or staying asleep, or sleeping too much Not at all 10/29/2024 8:52 AM Mitzi Curtis Feeling tired or having little energy Not at all 10/29/2024 8:52 AM Roxanne Obando Poor appetite or overeating Not at all [...] Caity Obando documented as of this encounter Medications at Time of Discharge acetaminophen (Tylenol) 325 MG tablet Take 1,000 mg by mouth every 6 (six) hours if needed. amLODIPine (Norvasc) 5 MG tablet Take by mouth 1 (one) time each day. 11/21/2019 atorvastatin (Lipitor) 40 MG tablet 1 (one) time each day. 11/21/2019 coenzyme Q-10 100 MG capsule Take 3 capsules (300 mg) by mouth every night. furosemide (Lasix) 40 MG tablet 1 (one) time each day if needed. 11/21/2019 levothyroxine (Synthroid, Levoxyl) 50 MCG tablet 1 (one) time each day before breakfast. 11/21/2019 MAGnesium-Oxide 400 (240 Mg) MG tablet Take 1 tablet (400 mg) by mouth 1 (one) time each day. 02/14/2024 multivitamin-mine rals-folic acid-coenzyme q10 (Preservision AREDS 2) capsule Take 1 capsule by mouth every night. Ozempic, 0.25 or 0.5 MG/DOSE, 2 MG/3ML solution pen-injector Inject 2 mg under the skin 1 (one) time per week. Sunday08/31/2022 Turmeric (QC TUMERIC COMPLEX PO) Take 1,000 mg by mouth every night. Xarelto 20 MG tablet 1 (one) time each day. 11/04/2021 documented as of this encounter Plan of Treatment Upcoming Encounters Date Type Department Care Team (Late st Contact Info) Description 02/11/2025 9:00 AM EDT Appointment [facility] [address] [place] [address] 02/11/2025 11:10 AM EDT Office Visit [facility] [address] [place] [address] Kinjal Henley PA [address] [place] [address] documented as of this encounter Procedures Procedure Name Priority Date/Time Associated Diagnosis Comments US PELVIS TRANSABDOMINAL Routine 10/29/2024 11:15 AM EDT PMB (postmenopausal bleeding) documented in this encounter Results * US Pelvis Transabdominal (10/29/2024 11:15 AM EDT) Anatomical Region Laterality Modality Pelvis Ultrasound 10/29/2024 10:3 1 AM EDT Impressions 10/30/2024 2:32 PM EDT The OB Ultrasound you requested has been resulted. Please navigate to the Imaging tab in [employer] for review. This message has been generated by the interface. Narrative Procedure Note Efren Cotter MD - 10/30/2024 IMPRESSION: The OB Ultrasound you requested has been resulted. Please navigate to theImaging tab in [employer] for review. This message has been generated by theinterface. us Yehuda Gaston MD IMG US PROCEDURES Final Resul t documented in this encounter Visit Diagnoses Diagnosis PMB (postmenopausal bleeding) Postmenopausal bleeding documented in this encounter Additional Health Concerns Assessment Noted Time PHQ-9 Depression Total Score: 0 10/30/19 25 8:52 AM EDT A fall risk assessment has been complete d for the patient 08/12/2024 11:42 AM EDT A Body Mass Index follow-up plan has been documented for the patient 10/29/2024 12:56 PM EDT documented as of this encounter Care Teams Inspector Penetrant Relationship Specialty Start Date End Date Jorge Solorzano MD [address] [place] [address] PCP - General 09/24/20 Alexandra Diehl MD [address] [place] [address] Service Attending Neurology 01/12/21 Kinjal Henley PA [address] [place] [address] Physician Information Technology Account Manager Urology 08/12/24 documented as of this encounter
--- NOTE | 2024-11-03 | CA_ITS ---
FINAL REPORT TECHNIQUE: Multiple transverse and longitudinal images were performed of right the femoral-popliteal deep venous system with augmentation and compression maneuvers. CLINICAL HISTORY: HTN, HLD. Takes Xarelto daily. Patient states on 10/23/24 she noticed RLE edema and pain. She denies trauma. She states she has lymphedema in both legs but the swelling is greater than usual. FINDINGS: Right lower extremity duplex ultrasound demonstrates normal flow in the deep venous system. There is no abnormal echogenicity to suggest thrombus. There is normal compression and augmentation. IMPRESSION: No evidence of right DVT. Reviewed, Interpreted and Dictated by Anette Burt MD Transcribed by Mikaela Bruce Authenticated and [facility]
--- OUTSIDE RECORDS SUMMARY | 2024-11-03 12:54 | XMS_ITS | Data Portability ---
Author Organization [place] [facility]OS[facility] Address [address] [place] [address] Care Team Providers Care Chemical Process Engineer Name Role Phone JUVENAL BUNDY Scalloper [employer]RACH[employer] STOLL Primary Care Provider Assessment No assessment recorded. Plan of Treatment Reminders Order Date Submit Date Provider Last Modified By Organization Details Last Modified Time Details Appointments None record ed. Lab None record ed. Referral None record ed. Procedures None record ed. Surgeries None record ed. Imaging None record ed. Medication Orders None record ed. Patient TargetsNo targets recorded. Patient Instructions Encounter Date Encounter Id Patient Instructions Last Modified By Organization Details Last Modified Time 03/21/2019 [id number] Ms Ivan has had issues with her voice since intubation. She has a largely normal exam today - no vocal cord masses, granulomas, hemorrhage. She may have a slight glottic gap on abduction but there does not appear to be any vocal cord paresis or paralysis. Possible MTD? Though she does not have much in the way of excessive supraglottic activity. Will place speech therapy referral, and then plan to see her back with a stroboscopy. [email or web address] Not available 03/21/2019 11:56:45 Reason for Referral None Reported. Results Created Date Observation Date Name Description Value Unit Range Abnormal Flag Note LastModifiedBy Organization Detail LastModifiedTime 08/30/1908/28/2022 CT, abdom en + pelvi s, w/o contr ast No observ ation record ed. [email or web address] [facility] [address], [place], [address], 08/29/2022 16:43:31 09/01/19 08/28/2022 CT, abdom en + pelvi s, w/o contr ast No observ ation record ed. [email or web address] [place] [address], [place], [address], 09/11/2022 16:01:33 Result Notes None recorded. Procedures Surgical History Date Name Laterality Status Provider Name and Address Organization Details Recorded Time 03/21/20 19 Laryngoscopy Flex completed FIDEL JOSHUA MD [address] [place], [address], [facility] 03/21/2019 11:54:56 03/11/20 19 Other completed [facility] 03/21/2019 10:44:01 Oral surgery procedure completed [facility] 03/21/2019 10:43:25 lumpectomy of breast completed [facility] 03/21/2019 10:43:34 Imaging Results None recorded. Procedure Notes None recorded. Medical Equipment None Reported. Allergies Allergen ID Allergen Name Allergen Category Reaction Reaction Severity Criticality Documentation Date Start Date Code Code System Note Provider Name and Address Organization Details Recorded Time 287045 vancomyci n medicatio n Not available Not available Not available 03/20/20192018 27398 RxNorm Mami Harris [facility] 9 14:05:17 Medications Name Sig Start Date Stop Date Status Note LastModified by Organization Details LastModified Time furosemide 40 mg tablet Take 40 mg by oral route. active Not Available Not Available No t Available atorvastatin 40 mg tablet Take 40 mg by oral route. active Not Available Not Available No t Available metformin 500 mg tablet 500 mg by oral route. active Not Available Not Available No t Available acetaminophen 325 mg tablet Take 650 mg by oral route. 03/21 completed Not Available Not Available Not Available prednisone 10 mg tablet 03/21 completed Not Available Not Available Not Available sotalol 80 mg tablet 03/21 completed Not Available Not Available Not Available sucralfate 1 gram tablet Take 1 g 3 times a day by oral route. 04/03 completed Not Available Not Available Not Available amlodipine 5 mg tablet 5 mg by oral route. active Not Available Not Available No t Available sotalol 120 mg tablet 03/21 completed Not Available Not Available Not Available ketorolac 10 mg tablet 03/21 completed Not Available Not Available Not Available bisoprolol fumarate 5 mg tablet 03/21 completed Not Available Not Available Not Available levothyroxine 50 mcg tablet Take 50 ugs by oral route. active Not Available Not Available No t Available pantoprazole 40 mg tablet,delaye d release 40 mg by oral route. 04/12 completed Not Available Not Available Not Available flecainide 50 mg tablet 03/21 completed Not Available Not Available Not Available flecainide 100 mg tablet 03/21 completed Not Available Not Available Not Available coenzyme Q10 100 mg capsule Take 100 mg by oral route. 03/21 completed Not Available Not Available Not Available Lipitor active Not Available Not Avail able Not Available Carafate active Not Available Not Avai lable Not Available Eliquis 5 mg tablet Take 5 mg by oral route. active Not Available Not Available No t Available Eliquis active Not Available Not Avail able Not Available Ozempic 1 mg/dose (2 mg/1.5 mL) subcutaneous pen injector active Not Available Not Available Not Available semaglutide 0.25 mg or 0.5 mg (2 mg/1.5 mL) subcutaneous pen injector Inject every week by sub-q route. 03/21 completed Not Available Not Available Not Available Vitals Date Recorded Body weight Body mass index (BMI) Body height Body temperature Heart rate Systolic blood pressure Diastolic blood pressure Provider Name and Address Organization Details Last Updated DateTime 9 768139. 96 g 49.6 kg/m2 167.64 cm 97.3 [degF] 73 /min 145 mm[Hg] 75 mm[Hg] [facility] 9 10:48:57 Social History Question Answer Notes LastModified by [employer] Details LastModified Time Tobacco Smoking Status Never Smoker [facility] 03/21/2019 10:42:59 How Much Tobacco Do You Chew? None Information not available 03/21/2019 How Much Tobacco Do You Smoke? No Information not available 03/21/2019 Sex: Unknown Functional Status Question Answer Note LastModified by Organizat ion Details LastModified Time What is your level of alcohol consumption? None Information not available 03/21/2019 Do you or have you ever used smokeless tobacco? [id number] Information not available 03/21/2019 Do you or have you ever used e-cigarettes or vape? Never used electronic cigarettes Information not available 03/21/2019 Mental Status None recorded. Family History Relationship Description Onset Age of this Age Resolved Age Notes LastModified by Organization Details LastModified Time Mother Family history of malignant neoplasm Not available 03/21 10:42:13 Father Hypertensive disorder Not available 03/21 10:42:21 Sister Asthma Not available 03/21/2019 10:42:30 Sister Diabetes mellitus Not available 03/21 10:42:40 Sister Kidney disease Not available 03/21 10:42:49 Medical History Condition Response Anesthesia Complications N Diabetes Y Bleeding Disorder N Cancer N Sleep Disorder Y Hypertension Y Gynecological HistoryNo gynecological history recorded. Obstetrics History GPAL:G 0 P 0 0 0 0 Past Encounters Encounter ID Performer Location Encounter Start Date Encounter Closed Date Diagnosis/Indication Diagnosis SNOMED-CT Code Diagnosis ICD10 Code Diagnosis Note [id number] FIDEL JOSHUA MD [place] [facility] [address] [place] [address] 03/21/2019 10:16:28 03/21/2019 12:03:59 On examination - dysphonia 032204671 R49.0 Health Concerns Section Related Observation LastModified by Organization Detai ls LastModified Time None Recorded Concern Status LastModified by Organization Details LastModified Time None Recorded Advance Directives Directive None Recorded Payers Insurance Date Sequence Insurance Name Policy Number Policy Caro Covered Member ID Caro Member ID Guarantor Name 09/01/2022 1 [employer] [facility] (MEDICAID HMO) Brandy Ivan [id number] Brandy Ivan 09/01/2022 1 [employer] [id number] Brandy Ivan [id number] Brandy Ivan Notes Date Note Type Note Provider Name and Address Organization Details Recorded Time 03/21/2019 text/html Ms Ivan is seen in consultation today regarding hoarseness following an intubation for a cardiac ablation about 1.5 weeks ago. She was hoarse immediately following the procedure. She occasionally has PND from allergies that will cause some voice changes, however this is different. The voice fluctuates, and will sometimes be almost back to normal. Using it more makes it worse. Denies dysphagia. Some residual soreness in throat from the intubation. Thinks she was under for about 3 hours. She was placed on a PPI for GERD post op. FIDEL JOSHUA MD [facility] [facility], [place], [address], [facility] 03/21/2019 11:57:48 OBGyn Episode No OBEpisode recorded.
--- OUTSIDE RECORDS SUMMARY | 2024-11-03 12:54 | XMS_ITS | Encounter Summary ---
Author Organization Healthcare Address [address] [place] [address] Care Team Providers Care Homebound Teacher Name Role Phone Jorge Solorzano MD Primary Care Provider Alexandra Diehl MD Unavailable [phone] Kinjal Henley Unavailable [phone] Encounter Details Date Type Department Care Team (Late st Contact Info) Description 09/01/2022 Community [facility] [address] [place] [address] Jorge Solorzano MD [address] [place] [address] Staghorn calculus (Primary Dx) Social History Tobacco Use Types Packs/Day Years Used Date Smoking Tobacco: Never Smokeless Tobacco: Never Alcohol Use Standard Drinks/Week Comments Never 0 (1 standard drink = 0.6 oz pur e alcohol) Comments Unknown Sex and Gender Information Value Date Recorded Sex Assigned at Female 11/08/2022 10:59 AM EDT Legal Sex Female 6:33 PM EDT Gender Identity Female 11/08/2022 10:59 AM EDT Sexual Orientation Not on file documented as of this encounter Plan of Treatment Upcoming Encounters Date Type Department Care Team (Late st Contact Info) Description 02/11/2025 9:00 AM EDT Appointment [facility] [address] [place] [address] 02/11/2025 11:10 AM EDT Office Visit [facility] [address] [place] [address] Kinjal Henley PA [address] [place] [address] documented as of this encounter Visit Diagnoses Diagnosis Staghorn calculus- Primary Calculus of kidney documented in this encounter Additional Health Concerns Assessment Noted Time A fall risk assessment has been complete d for the patient 01/18/2022 11:39 AM EDT documented as of this encounter Care Teams Homebound Teacher Relationship Specialty Start Date End Date Jorge Solorzano MD [address] [place] [address] PCP - General 09/24/20 Alexandra Diehl MD [address] [place] [address] Service Attending Neurology 01/12/21 Kinjal Henley PA [address] [place] [address] Physician Curriculum Designer Urology 08/12/24 documented as of this encounter
--- OUTSIDE RECORDS SUMMARY | 2024-11-03 12:54 | XMS_ITS | Encounter Summary ---
Author Organization Healthcare Address [address] [place] [address] Care Team Providers Care Manager Distribution Center Name Role Phone Jorge Solorzano MD Primary Care Provider [phone] Alexandra Diehl MD Unavailable [phone] Kinjal Henley Unavailable [phone] Encounter Details Date Type Department Care Team (Latest Contact Info) Description 10/29/2024 Travel Social History Tobacco Use Types Packs/Day Years [...] hopeless Not at all 10/29/2024 8:52 AM EDRoxanne Quintana Patient Health Questionnaire-2 Score 0 10/29/2024 8:52 AM Lorena Obando * Question Answer Date of Assessment Author Trouble falling or staying asleep, or sleeping too much Not at all 10/29/2024 8:52 AM Mitzi Curtis Feeling tired or having little energy Not at all 10/29/2024 8:52 AM Roxanne Obando Poor appetite or overeating Not at all 10/29/2024 8: 52 AM HANANET Mitzi Montoya Feeling bad about yourself - or that [...] Caity Obando documented as of this encounter Plan of Treatment Upcoming Encounters Date Type Department Care Team (Late st Contact Info) Description 02/11/2025 9:00 AM EDT [facility] [address] [place] [address] 02/11/2025 11:10 AM EDT Office Visit [facility] [address] [place] [address] Kinjal Henley PA [address] [place] [address] documented as of this encounter Visit Diagnoses Not on filedocumented in this encounter Additional Health Concerns Assessment Noted Time PHQ-9 Depression Total Score: 0 10/30/19 8:52 AM EDT A fall risk assessment has been complete d for the patient 08/12/2024 11:42 AM EDT A Body Mass Index follow-up plan has been documented for the patient 10/29/2024 12:56 PM EDT documented as of this encounter Care Teams Manager Distribution Center Relationship Specialty Start Date End Date Jorge Solorzano MD [address] [place] [address] PCP - General 09/24/20 Alexandra Diehl MD [address] [place] [address] Service Attending Neurology 01/12/21 Kinjal Henley PA [address] [place] [address] Physician Maintenance And Utilities Supervisor Urology 08/12/24 documented as of this encounter
--- OUTSIDE RECORDS SUMMARY | 2024-11-03 12:54 | XMS_ITS | Clinical Summary ---
Author Organization [facility] Address [address] [place] [address] Care Team Providers Care Master Certified Rv Technician Name Role Phone Jorge Solorzano MD Primary Care Provider [phone] Alexandra Diehl MD Unavailable [phone] Kinjal Henley Unavailable [phone] Allergies Active Allergy Reactions Criticality Noted Date Comments Dexbrompheniramine Rash Low 05/10/2021 Pseudoephedrine Rash Low 05/10/2021 Vancomycin Other - please docum ent in the comment field,Unknown - Patient states they do not know rxn details Medium 03/10/2019 Red man syndrome Medications acetaminophen (Tylenol) 325 MG tablet Take 1,000 mg by mouth every 6 (six) hours if needed. Active amLODIPine (Norvasc) 5 MG tablet Take by mouth 1 (one) time each day. 11/21/2019 Active atorvastatin (Lipitor) 40 MG tablet 1 (one) time each day. 11/21/2019 Active coenzyme Q-10 100 MG capsule Take 3 capsules (300 mg) by mouth every night. Active furosemide (Lasix) 40 MG tablet 1 (one) time each day if needed. 11/21/2019 Active levothyroxine (Synthroid, Levoxyl) 50 MCG tablet 1 (one) time each day before breakfast. 11/21/2019 Active Xarelto 20 MG tablet 1 (one) time each day. 11/04/2021 Active Ozempic, 0.25 or 0.5 MG/DOSE, 2 MG/3ML solution pen-injector Inject 2 mg under the skin 1 (one) time per week. Sunday08/31/2022 Active multivitamin-mi nerals-folic acid-coenzyme q10 (Preservision AREDS 2) capsule Take 1 capsule by mouth every night. Active Turmeric (QC TUMERIC COMPLEX PO) Take 1,000 mg by mouth every night. Active MAGnesium-Oxide 400 (240 Mg) MG tablet Take 1 tablet (400 mg) by mouth 1 (one) time each day. 02/14/2024 Active Active Problems Problem Noted Date Diagnosed Date Cervicalgia 05/31/2024 Deficiency of other specified B group vitamins 1 05/31/2023 Hypothyroidism, unspecified 03/31/2024 Rash and other nonspecific skin eruption 024 Unspecified visual disturbance 02/20/2024 Disorder of kidney and ureter, unspecified 08/13 Kidney stones 08/14/2023 Overview (10/29/2024): Kidney stone that had to be removed in 2021 CAD (coronary artery disease) 02/14/2023 Diastolic dysfunction 02/14/2023 02/14/2023 Hyperlipidemia 02/14/2023 02/14/2023 Hypertensive heart disease 02/14/202302/14 Lymphedema 02/14/2023 02/14/2023 SOB (shortness of breath) 02/14/20232022 CYNTHIA (obstructive sleep apnea) 11/08/2022 Overview (11/08/2022): Does not use CPAP History of anesthesia complications 11/08/2022 Overview (11/08/2022): History of hoarseness after last ETT. Resolved after Speech pathology in a couple weeks. 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 01/12/2021 Bilateral presbyopia 03/02/2020 DM (diabetes mellitus) 03/02/2020 Migraine with visual aura 03/02/2020 Visual aura 03/02/2020 Abnormal MRI 11/21/2019 Essential hypertension 08/14/2018 Paroxysmal atrial fibrillation 08/14/2018 Encounters Date Type Department Care Team Description 10/29/2024 9:29 AM EDT - 10/29/2024 11:59 PM EDT Hospital Encounter [facility] [address], [address] [place] [address] PMB (postmenopausal bleeding) Discharge Disposition: Home or Self Care 10/29/2024 9:15 AM EDT Office Visit Medical Office [facility] Obstetrics and Gynecology [address], [address] [place] [address] Yehuda Gaston MD PMB (postmenopausal bleeding) (Primary Dx) 10/29/2024 Travel 10/22/2024 Travel 09/04/2024 [facility] [address] [place] [address] Jorge Solorzano MD Endometrial thickening on ultrasound (Primary Dx); Complex endometrial hyperplasia 08/12/2024 11:30 AM EDT Office Visit [facility] [address] [place] [address] Kinjal Henley PA Kidney stones (Primary Dx); Endometrial thickening on ultrasound 08/12/2024 9:05 AM EDT - 08/12/2024 11:59 PM EDT Hospital Encounter [facility] [address] [place] [address] Kidney stones Discharge Disposition: Home or Self Care 08/12/2024 Results Follow-Up [facility] [address] [place] [address] Kinjal Henley PA 08/12/2024 Travel 08/08/2024 Travel from Last 3 Months Immunizations Immunization Administration Dates Next Due Influenza, recombinant, quad rivalent, injectable, preservative free 01/24/2021 Moderna COVID-19 Vaccine (Loan Operations Specialist) 12+ years 09/2020,05/21/2020 Pneumococcal Polysaccharide PPV23 08/27/2019 Family History Medical History Relation Name Comments Stroke Brother Андрей Ivan Cardiac disorder Maternal Grandmother [place] Diabetes Maternal Grandmother [place] Anxiety disorder Mother Blossome Perraut Arthritis Mother Blossome Perraut Breast cancer Mother Blossome Perraut Cancer Mother Blossome Perraut Cataracts Mother Blossome Perraut Vision loss Mother Blossome Perraut Mental illness Sister Rosanne Vieira Restless legs syndrome Sister Rosanne Vieira Anesthesia problems Neg Hx Malig Hyperthermia Neg Hx Relation Name Status Comments Brother Андрей Ivan Maternal Grandmother Christy Kaiser Mother Blossome Perraut Sister Rosanne Vieira Social History Tobacco Use Types Packs/Day Years [...] AM EDT Sexual Orientation Not on file Last Filed Vital Signs Vital Sign Reading [...] Mass Index 48.74 10/29/2024 8:48 AM EDT Plan of Treatment Upcoming Encounters Date Type Department Care Team (Late st Contact Info) Description 02/11/2025 9:00 AM EDT Appointment [facility] [address] [place] [address] 02/11/2025 11:10 AM EDT Office Visit [facility] [address] [place] [address] Kinjal Henley PA [address] [place] [address] Health Maintenance Due Date Last Done Comments [facility]-HIV Screening 1963 [facility]-Hepatitis C Screening 1963 [facility]-/Child/Adol SDOH Screenings 1963 Diabetes: Dental Exam 1973 [facility]- SDOH Screenings 1981 [facility]-Adult SDOH Screenings 1981 [facility]-DTaP,Tdap,and Td Vaccines (1 - Tdap) 1982 [facility]-Pap Smear 01/14/1984 [facility]-Cervical Cancer Screening 1993 [facility]-HPV/Cotest 1993 CT Colonography 01/14/2008 Colonoscopy 01/14/2008 FIT 01/14/2008 FOBT 01/14/2008 Sigmoidoscopy 01/14/2008 [facility]-Breast Cancer Screening 2013 [facility]-Diabetes: Hemoglobin A1C 09/07/2019 03/10/2019 [id number] Vaccine (3 - Moderna risk series) 07/16/2020 06/18/2020, 05/21/2020 [facility]-Pneumococcal Vaccine: 50+ Years (2 of 2 - PCV) 08/26/2020 08/27/2019 [facility]-RSV Vaccine: 60+ Years or (1 - Risk 60-74 years 1-dose series) 2023 [facility]-Zoster Vaccines (2 of 2) 04/30/2024 03/05/2024 [facility]-Depression Screening 10/29/2025 10/29/2024, 10/12 FIT-DNA 03/13/2026 03/13/2023 [facility]-Colorectal Cancer Screening 03/13/2026 [facility]-Influenza Vaccine Completed 03/05/2024 , 03/27/2023, 01/24/2021 [facility]-Obesity Intervention Completed 025, 02/20/2024, 08/14/2023, Additional history exists HPV Vaccines Aged Out No longer eligi ble based on patient's age to complete this topic [facility]-HIB Vaccines Aged Out No longer e ligible based on patient's age to complete this topic [facility]-Hepatitis A Vaccines Aged Out No longer eligible based on patient's age to complete this topic [facility]-IPV Vaccines Aged Out No longer e ligible based on patient's age to complete this topic [facility]-Rotavirus Vaccines Aged Out No lo nger eligible based on patient's age to complete this topic Medical Devices Implanted Type Area Sales Assistant Device Identifier Shelf Expiration Date Model / Serial / Lot Stent Ureteral Double Pigtail Pos 6fr 24cm - S. - [id number] Implanted:Qty: 1 on 11/08/2022 by Michele Cordero MD at [facility] Stent Right: [id number] 07/24/2024 [id number] / . / [id number] Procedures Procedure Name Priority Date/Time Associated Diagnosis Comments US PELVIS TRANSABDOMINAL Routine 10/29/2024 11:15 AM EDT PMB (postmenopausal bleeding) US RENAL COMPLETE Routine 08/12/2024 9:3 9 AM EDT Kidney stones from Last 3 Months Results * US Pelvis Transabdominal (10/29/2024 11:15 AM EDT) Anatomical Region Laterality Modality Pelvis Ultrasound 10/29/2024 10:3 1 AM EDT Impressions 10/30/2024 2:32 PM EDT The OB Ultrasound you requested has been resulted. Please navigate to the Imaging tab in [employer] for review. This message has been generated by the interface. Narrative Procedure Note Efren Cotter MD - 10/30/2024 IMPRESSION: The OB Ultrasound you requested has been resulted. Please navigate to theImaging tab in [employer] for review. This message has been generated by theinterface. Yehuda Gaston MD IMG US PROCEDURES Final Resul t * US Renal (08/12/2024 9:39 AM EDT) Anatomical Region Laterality Modality Kidney Ultrasound Impressions 08/12/2024 9:51 AM EDT No hydronephrosis or sonographically detectable renal calculi. Incidentally noted thickened endometrium which measures up to 13 mm, recommend gynecologic consultation. CRITICAL RESULT: No. COMMUNICATION: Per this written report. By electronically signing this report, I, the attending physician, attest that I have personally reviewed the images/data for the above examination(s) and agree with the final edited report. Drafted by Kishor Horner D.O. on 08/12/2024 9:46 AM Final report signed by Damaris Tinajero MD on 08/12/2024 9:51 AM Narrative 08/12/2024 9:51 AM EDT CLINICAL INDICATION: nephrolithiasis TECHNIQUE: Multiplanar sood scale sonographic imaging of the kidneys. COMPARISON: Renal ultrasound August 14, 2023 FINDINGS: Right Kidney: The right kidney is normal in size and echogenicity measuring 12.6 cm. No hydronephrosis. No contour deforming masses. No obvious calculi. Possible junctional parenchymal defect. Left Kidney: The left kidney is normal in size and echogenicity measuring 13 cm. No hydronephrosis. No contour deforming masses. No obvious calculi. Bladder: Partially decompressed without obvious abnormality. Other: Incidentally noted thickened endometrium which measures up to 13 mm. Procedure Note Damaris Tinajero MD - 08/12/2024 CLINICAL INDICATION: nephrolithiasis TECHNIQUE: Multiplanar sood scale sonographic imaging of the kidneys. COMPARISON: Renal ultrasound August 14, 2023 FINDINGS: Right Kidney: The right kidney is normal in size and echogenicitymeasuring 12.6 cm. No hydronephrosis. No contour deforming masses. Noobvious calculi. Possible junctional parenchymal defect. Left Kidney: The left kidney is normal in size and echogenicity [id number] cm. No hydronephrosis. No contour deforming masses. No obviouscalculi. Bladder: Partially decompressed without obvious abnormality. Other: Incidentally noted thickened endometrium which measures up to 13mm. IMPRESSION: No hydronephrosis or sonographically detectable renal calculi. Incidentally noted thickened endometrium which measures up to 13 mm,recommend gynecologic consultation. CRITICAL RESULT: No. COMMUNICATION: Per this written report. By electronically signing this report, I, the attending physician, dariel I have personally reviewed the images/data for the aboveexamination(s) and agree with the final edited report. Drafted by Kishor Horner D.O. on 08/12/2024 9:46 AM Final report signed by Damaris Tinajero MD on 08/12/2024 9:51 AM us Kinjal DEXTER IMG US PROCEDURES Final Result from Last 3 Months Insurance [employer] Care Teams Master Certified Rv Technician Relationship Specialty Start Date End Date Jorge Solorzano MD [address] [place], [place] [address] PCP - General 09/24/20 Alexandra Diehl MD [address] [place] [address] Service Attending Neurology 01/12/21 Kinjal Henley PA [address] [place] [address] Physician Benefits Consultant Urology 08/12/24
--- OUTSIDE RECORDS SUMMARY | 2024-11-03 12:54 | XMS_ITS | Encounter Summary ---
Author Organization [facility] Address [address] [place] [address] Care Team Providers Care Data Security Analyst Name Role Phone Jorge Solorzano MD Primary Care Provider [phone] Alexandra Diehl MD Unavailable [phone] Kinjal Henley Unavailable [phone] Encounter Details Date Type Department Care Team (Latest Contact Info) Description 10/22/2024 Travel Social History Tobacco Use Types Packs/Day Years Used Date Smoking Tobacco: Never Passive Smoke Exposure: Never Smokeless Tobacco: Never Alcohol Use Standard Drinks/Week Comments Never 0 (1 standard drink = 0.6 oz pur e alcohol) PHQ-2 Answer Date Recorded Patient Health Questionnaire-2 Score 0 08/12/2024 PHQ-9 Answer Date Recorded Patient Health Questionnaire-9 Score 0 08/12/2024 PHQ-2A Answer Date Recorded Patient Health Questionnaire-2 Score 2 02/14/2023 Comments No Sex and Gender Information Value Date Recorded Sex Assigned at Female 11/08/2022 10:59 AM EDT Legal Sex Female 6:33 PM EDT Gender Identity Female 11/08/2022 10:59 AM EDT Sexual Orientation Not on file documented as of this encounter Plan of Treatment Upcoming Encounters Date Type Department Care Team ( Contact Info) Description 02/11/2025 9:00 AM EDT Appointment [facility] [address] [place] [address] 02/11/2025 11:10 AM EDT Office Visit [facility] [address] [place] [address] Kinjal Henley PA [address] [place] [address] documented as of this encounter Visit Diagnoses Not on filedocumented in this encounter Additional Health Concerns Assessment Noted Time PHQ-9 Depression Total Score: 0 08/13/19 11:42 AM EDT A fall risk assessment has been complete d for the patient 08/12/2024 11:42 AM EDT A Body Mass Index follow-up plan has been documented for the patient 02/20/2024 1:12 PM EDT documented as of this encounter Care Teams Data Security Analyst Relationship Specialty Start Date End Date Jorge Solorzano MD [address] [place] [address] PCP - General 09/24/20 Alexandra Diehl MD [address] [place] [address] Service Attending Neurology 01/12/21 Kinjal Henley PA [address] [place] [address] Physician Laundry Superintendent Urology 08/12/24 documented as of this encounter
--- OUTSIDE RECORDS SUMMARY | 2024-11-03 12:55 | XMS_ITS | Encounter Summary ---
Author Organization [facility] Address [address] [place] [address] Care Team Providers Care Ironing Pleater Name Role Phone Jorge Solorzano MD Primary Care Provider [phone] Alexandra Diehl MD Unavailable [phone] Kinjal Henley Unavailable [phone] Reason for Referral * Consultation (Routine) - Closed Specialty Diagnoses / Procedures Referred By Contmary lou stock Referred To Contact Gynecology / Obstetrics and Gynecology Diagnoses Complex endometrial hyperplasia Endometrial thickening on ultrasound Jorge Solorzano MD [address] [place] [address] Phone: tel: fax: Referral ID Status Reason Start Date Expiration Date V isits Requested Visits Authorized [id number] Closed Specialty Services Required 09/04/2024 03/06/2026 1 1 Encounter Details Date Type Department Care Team (Late st Contact Info) Description 09/04/2024 [facility] [address] [place] [address] Jorge Solorzano MD [address] [facility] [address] [place] [address] Endometrial thickening on ultrasound (Primary Dx); Complex endometrial hyperplasia Social History Tobacco Use Types Packs/Day Years [...] EDT Appointment [facility] [address] [place] [address] 02/11/2025 11:10 AM EDT Office Visit [facility] [address] [place] [address] Kinjal Henley, PA [address] [place] [address] Scheduled Referrals Name Type Priority Associated Diagnoses Orde r Schedule Ambulatory referral to Gynecology Outpatient Referral Routine Complex endometrial hyperplasia Endometrial thickening on ultrasound Expected: 09/11/2024, Expires: 03/06/2026 documented as of this encounter Visit Diagnoses Diagnosis Endometrial thickening on ultrasound- Primary Complex endometrial hyperplasia Complex endometrial hyperplasia without atypia documented in this encounter Additional Health Concerns Assessment Noted Time PHQ-9 Depression Total Score: 0 08/13/19 25 11:42 AM EDT A fall risk assessment has been complete d for the patient 08/12/2024 11:42 AM EDT A Body Mass Index follow-up plan has been documented for the patient 02/20/2024 1:12 PM EDT documented as of this encounter Care Teams Ironing Pleater Relationship Specialty Start Date End Date Jorge Solorzano MD [address] [place] [address] PCP - General 09/24/20 Alexandra Diehl MD [address] [place] [address] Service Attending Neurology 01/12/21 Kinjal Henley PA [address] [place] [address] Physician Continuous Process Rotary Drum Tanner Urology 08/12/24 documented as of this encounter
--- OUTSIDE RECORDS SUMMARY | 2024-11-03 12:55 | XMS_ITS | Encounter Summary ---
Author Organization Healthcare Address [address] [place] [address] Care Team Providers Care Photographic Restorer Name Role Phone Jorge Solorzano MD Primary Care Provider [phone] Alexandra Diehl MD Unavailable [phone] Kinjal Henley Unavailable [phone] Encounter Details Date Type Department Care Team (Late st Contact Info) Description 08/12/2024 Results Follow-Up [facility] [address] [place] [address] Kinjal Henley PA [address] [place] [address] Social History Tobacco Use Types Packs/Day Years [...] pleasure in doing things Not at all 08/12/2024 11:42 AM Flavio Trejo Feeling down, depressed, or hopeless Not at all 08/12/2024 11:42 AM Flavio Trejo Patient Health Questionnaire -2 Score 0 08/12/2024 11:42 AM Flavio Trejo * Question Answer Date of Assessment Author Trouble falling or staying asleep, or sleeping too much Not at all 08/12/2024 11:42 AM EDT Mina Quick Feeling tired or having jennifer le energy Not at all 08/12/2024 11:42 AM Flavio Trejo Poor appetite or overeating Not at all 08/12/2024 11 :42 AM Mina Trejo Feeling bad about yourself - or that you are a failure or have let yourself or your family down Not at all 08/12/2024 11:42 AM EDT Mina Patterson Trouble concentrating on thi ngs, such as reading the newspaper or watching television Not at all 08/12/2024 11:42 AM Flavio Trejo Moving or speaking so slowly that other people could have noticed? Or the opposite - being so fidgety or restless that you have been moving around a lot more than usual. Not at all 08/12/2024 11:42 AM Flavio Trejo Thoughts that you would be better off or hurting yourself in some way Not at all 08/12/2024 11:[address] Patient Health Questionnaire -9 Score 0 08/12/2024 11:42 AM Flavio Trejo documented as of this encounter Plan of Treatment Upcoming Encounters Date Type Department Care Team (Late st Contact Info) Description 02/11/2025 9:00 AM EDT Appointment [facility] [address] [place] [address] 02/11/2025 11:10 AM EDT Office Visit [place] [facility] [address] [place] [address] Kinjal Henley PA [address] [place] [address] documented as of this encounter [...] documented as of this encounter Care Teams Photographic Restorer Relationship Specialty Start Date End Date Jorge Solorzano MD [address] [place] [address] PCP - General 09/24/20 Alexandra Diehl MD [address] [place] [address] Service Attending Neurology 01/12/21 Kinjal Henley PA [address] [place] [address] Physician Qualitative Field Project Manager Urology 08/12/24 documented as of this encounter
--- NOTE | 2024-11-03 13:37 | XR_ITS ---
FINAL REPORT CLINICAL HISTORY: SWEELING OF JOINT, EDEMA LOWER EXTREMITY FINDINGS: RIGHT KNEE 3 views of the right knee were obtained. There is no acute fracture or dislocation. There are moderate degenerative changes including moderate tricompartmental degenerative change. Visualized joint spaces are normally aligned. Soft tissues are unremarkable. IMPRESSION: No acute bony abnormality. Reviewed, Interpreted and Dictated by Anette Burt MD Transcribed by Mikaela Bruce Authenticated and . [facility]
== END 2024-11-03 23:59 | disposition home or self-care (01) ==
LOC: RT 12:52
PROVIDERS: PCP Internal Medicine Adolescent Medicine; Visit Provider Internal Medicine Adolescent Medicine
DX: M25.461 Effusion, right knee (principal); I10 Essential (primary) hypertension; E78.5 Hyperlipidemia, unspecified; R60.0 Localized edema
CPT/HCPCS: 73562; 93971